=== PATIENT | female | born 1940 | race Caucasian/White ===

== ENCOUNTER 2017-04-09 16:36 | Inpatient (IN) | payer OTHER, MEDICARE ==
[~2017-04-09] VITALS: Ht 154.9 cm; Wt 124.7 kg
[~2017-04-09 16:36] MED LIST: AMITRIPTYLINE H50 MG PO; AMOXIL500 MG PO; ATIVAN0.5 MG PO; ATIVAN1 MG PO; B-121000 MCG PO; CIPRO 500MG TA500 MG PO; CLARITIN10 MG PO; CRESTOR20 MG PO; CYMBALTA 30 MG30 MG PO; DONEPEZIL HYDRO10 M1 PO; DONEPEZIL HYDRO10 MG PO; DULOXETINE30 MG PO; FLAGYL 25O MG250 M1 PO; FOLIC ACID 1 MG PO; FOLIC ACID1 MG PO; IMDUR 60MG TAB60 MG PO; INSULIN HUMA100 U/ML SC; LEVEMIR 10100 UNITS/ SC; LEVEMIR FLEX100 U/ML PO; LEVEMIR FLEX100 U/ML SC; LEVEMIR100 U/ML IM; LOPRESSOR 25MG25 MG PO; LOPRESSOR50 MG PO; LYRICA75 MG PO; MELOXICAM15 MG PO; NOVOLOG 10300 UNITS/ SC; NOVOLOG FLEX100 U/ML SC; NYAMYC100000 U/G TOP; NYSTATIN AND TR1 CR1 TOP; PERCOCET 325 MG1 TA2 PO; PROTONIX 40MG T40 MG PO; PROTONIX INJ40 MG IV; REQUIP2 MG PO; ROPINIROLE HYDRO2 MG PO; TRAMADOL HCL50 M1 PO; TRAZODONE HCL100 MG PO; TRAZODONE100 MG PO; TYLENOL325 MG PO; VESICARE 10MG10 MG PO; VICTOZA6 MG/ML SC; VISTARIL25 MG PO; VITAMIN B COMPL1 TA1 PO; VITAMIN B-6100 MG PO; VITAMIN B625 MG PO; VITAMIN D1000 IU PO; ZOFRAN 2MG/4 MG/2 ML IV
--- NOTE | 2017-04-09 16:56 | ED GI/GU/ABDOMINAL COMPLAINT ---
History of Present Illness General Chief Complaint: Female Urogenital Problems Stated Complaint: BIBA UTI,LETHARGIC Source: patient, family, old records, EMS Exam Limitations: confusion Vital Signs & Intake/Output Vital Signs & Intake/Output Vital Signs Date Time Temp Pulse Resp B/P B/P Pulse O2 O2 Flow FiO2 Mean Ox Delivery Rate 04/09 2125 96.9 04/09 2124 96.9 85 16 94 Nasal 4.0L Cannula 04/09 1910 97.6 86 16 125/64 94 Room Air 04/09 1802 93 Nasal 4.0L Cannula 04/09 1703 97.0 90 12 148/70 95 Nasal 4.0L Cannula Allergies Coded Allergies: Opioids - Morphine Analogues (UNKNOWN REACTION TO "PAIN PILLS" 04/09/17) Reconcile Medications AMITRIPTYLINE HCL (Amitriptyline HCl) 50 MG TABLET 1 TAB PO AT BEDTIME PSYCH (Reported) Amoxicillin (Amoxil) 500 MG CAP 1 CAP PO BID infn Cholecalciferol (Vitamin D3) 1,000 UNIT TABLET 1 TAB PO DAILY VITAMIN ( Reported) Donepezil Hydrochloride 10 MG TAB 1 TAB PO DAILY DEMENTIA (Reported) DULOXETINE HCL (Duloxetine) 30 MG CAPSULE.DR 1 TAB PO DAILY UNKNOWN (Reported ) Folic Acid 1 MG TABLET 1 TAB PO DAILY VITAMIN (Reported) Hydroxyzine Pamoate (Vistaril) 25 MG CAP 1 CAP PO BID itching Insulin Detemir (Levemir) 100 UNIT/ML VIAL DIABETES (Reported) 30 UNITS IN AM 45 UNITS AT PM Insulin Human Regular 100 U/ML MO Unknown UNITS SC TIDAC PRN GLUCOSE CONTROL BLOOD SUGAR # OF UNITS 80-150 NONE 151-200 1 UNITS 201-250 2 UNITS 251-300 3 UNITS 301-350 4 UNITS 351-400 6 UNITS >400 8 UNITS and Call Loratadine (Claritin) 10 MG TAB 1 TAB PO DAILY SEASONAL ALLERGIES (Reported) Lorazepam (Ativan) 0.5 MG TAB 1 TAB PO Q8H PRN ANXIETY (Reported) Metoprolol Tartrate (Lopressor) 25 MG TABLET 1 TAB PO BID HEART RATE ( Reported) Nystatin (Nyamyc) 100,000 UNIT/GRAM POWDER 1 POW TOP PRN RASH (Reported) Ondansetron (Ondansetron HCl 4 MG/2 Ml Vial) 4 MG/2 ML VIAL 4 MG IV Q6P PRN NAUSEA/VOMITING Pantoprazole Sodium (Protonix) 40 MG TABLET.DR 1 TAB PO BID GERD (Reported) Pregabalin (Lyrica) 75 MG CAPSULE 1 TAB PO BID UNKNOWN (Reported) Pyridoxine (Vitamin B6) 25 MG TAB 1 TAB PO DAILY VITAMIN (Reported) ROPINIROLE HCL (Ropinirole Hydrochloride) 2 MG TABLET 1 TAB PO AT BEDTIME RESTLESS LEGS (Reported) Rosuvastatin Calcium (Crestor) 20 MG TABLET 1 TAB PO DAILY CHOLESTEROL ( Reported) Solifenacin Succinate (Vesicare) 10 MG TABLET 1 TAB PO DAILY UNKNOWN ( Reported) TRAMADOL HCL (Tramadol HCl) 50 MG TABLET 1 TAB PO Q4H PRN PAIN (Reported) TRAZODONE HCL (Trazodone HCl) 100 MG TABLET 1 TAB PO AT BEDTIME PAIN ( Reported) VIT B COMP/C/FA/IRON/VIT E (Vitamin B Complex Tablet) 500-400-18 TABLET 1 TAB PO DAILY VITAMIN (Reported) Triage Nurses Notes Reviewed? yes ? n Is pt currently ? No Onset: Abrupt Duration: hour(s): Timing: recent history Quality/Severity: moderate, sharpness, severe (v ) Radiation: no radiation Activities at Onset: none Use of Protection: No HPI: 77-year-old female comes into emergency room for further evaluation of increased confusion and weakness has been going on for the past few weeks. Patient lives at home with HER-2 daughters. Daughters report decline in her ability to function. He has not been taking so. No fevers. Patient denies any complaints of pain is mildly confused. History is very limited. Patient was brought in by ambulance. (YUNI ARMSTRONG) Past History Medical History Any Pertinent Medical History? 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 Relation not specified for: FH: leukemia FH: pulmonary embolism Hx Contributory? No (YUNI ARMSTRONG) Review of Systems Review of Systems Constitutional: Reports: see HPI. EENTM: Reports: no symptoms. Respiratory: Reports: no symptoms. Cardiovascular: Reports: no symptoms. GI: Reports: no symptoms. Genitourinary: Reports: no symptoms. Musculoskeletal: Reports: no symptoms. Skin: Reports: no symptoms. Neurological/Psychological: Reports: see HPI. Hematologic/Endocrine: Reports: no symptoms. Immunologic/Allergic: Reports: no symptoms. All Other Systems: Reviewed and Negative (YUNI ARMSTRONG) Physical Exam Physical Exam General Appearance: alert, awake, obese Head: atraumatic Eyes: Bilateral: normal appearance, EOMI. Ears, Nose, Throat, Mouth: hearing grossly normal, moist mucous membrane Neck: normal inspection, full range of motion Respiratory: normal breath sounds, no respiratory distress Cardiovascular: regular rate/rhythm Gastrointestinal: soft Back: normal inspection Extremities: normal range of motion Neurologic/Psych: awake, alert Skin: intact, rash Core Measures ACS in differential dx? No Severe Sepsis Present: No Septic Shock Present: No (YUNI ARMSTRONG) Progress Differential Diagnosis: appendicitis, bowel obstruction, colon cancer, cholecystitis, diverticulitis, ectopic , inflamm bowel dis, intrauterine , kidney stone, ovarian cyst, ovarian torsion, pancreatitis, perforated viscous, threatened AB, UTI/pyelo, CVA, intracranial bleed, sepsis, Plan of Care: Orders Procedure Date/time Status Regular Diet 04/10 B Active Patient Data 04/09 2146 Active OXYGEN SETUP (GEN) 04/09 1913 Active Saline Lock 04/09 1913 Active Admit to inpatient 04/09 1913 Active Vital Signs 04/09 1913 Active Activity/Ambulation 04/09 1913 Active Code Status 04/09 1913 Active CULTURE,URINE 04/09 1655 Active URINALYSIS 04/09 1655 Complete TROPONIN LEVEL 04/09 1655 Complete LIPASE 04/09 1655 Complete COMPREHENSIVE METABOLIC PANEL 04/09 1655 Complete CBC WITHOUT DIFFERENTIAL 04/09 1655 Complete EKG 04/09 1655 Active Laboratory Tests 04/09/17 1730: Anion Gap 13, Estimated GFR 40 L, BUN/Creatinine Ratio 14.6, Glucose 91, Calcium 9.1, Total Bilirubin 1.0, AST 28, ALT 32, Alkaline Phosphatase 124, Troponin I < 0.01, Total Protein 7.2, Albumin 3.6, Globulin 3.6, Albumin/ Globulin Ratio 1.0 L, Lipase 83, CBC w Diff NO MAN DIFF REQ, RBC 5.86 H, MCV 87.8, MCH 28.6, RDW 13.8, MPV 9.2, Gran % 85.3 H, Lymphocytes % 7.6 L, Monocytes % 6.7, Eosinophils % 0.2, Basophils % 0.2, Absolute Granulocytes 11.4 H, Absolute Lymphocytes 1.0 L, Absolute Monocytes 0.9 H, Absolute Eosinophils 0, Absolute Basophils 0, PUBS MCHC 32.6 L 04/09/171707: Urine Color YEL, Urine Clarity CLDY H, Urine pH 7.0, Ur Specific [place] 1.020, Urine Protein 100 H, Urine Ketones NEG, Urine Nitrite POS H, Urine Bilirubin NEG, Urine Urobilinogen 4.0 H, Ur Leukocyte Esterase LARGE H, Ur Microscopic SEDIMENT EXAMINED, Urine RBC >75 H, Urine WBC > 75 H, Ur Epithelial Cells RARE , Urine Bacteria MANY H, Urine Mucus RARE, Urine Hemoglobin LARGE H, Urine Glucose NEG Microbiology 04/09 1708 URINE ROUT: Urine Culture - RECD Initial ED EKG: normal intervals, normal p-waves, normal sinus rhythm, rate (92) , nonspecific ST T wave chg (YUNI ARMSTRONG) Departure Departure Disposition: STILL A PATIENT Condition: Stable Clinical Impression Primary Impression: Acute kidney injury Secondary Impressions: UTI (urinary tract infection) Referrals: HERRERA CULLEN MD (PCP/Family) Departure Forms: Customer Survey General Discharge Information Admission Note Spoke With: MEL TOLEDO MD Documentation of Exam: Documentation of any treatments & extenuating circumstances including Concerns Regarding Discharge (functional status, medication knowledge or non-compliance, living conditions, etc.) that warrant an admission rather than observation: Patient will require IV antibiotics. IV fluids. Case management. Physical therapy. Patient would do poorly as an outpatient. Patient unsafe to be discharged home at this time. 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 I have also reviewed all the pertinent lab results and diagnostic results. I agree with the findings and the plan of care as documented in the PA's/METAL HANGING SUPERVISOR's documentation. [] I have reviewed the ED Record and agree with the PA's/METAL HANGING SUPERVISOR's documentation. [] Additions or exceptions (if any) to the PAs/METAL HANGING SUPERVISOR's note and plan are summarized below: [] (JAMEEL CROWE,NONI)
--- NOTE | 2017-04-09 17:08 | NUR ---
BIBA FOR AMS, DIAGNOSED RECENTLY WITH UTI AND STARTED ON ANTIBIOTICS YESTERDAY. PT IS MORBIDLY OBESE, BEDRIDDEN AT BASELINE AND PER EMS, LIVES IN INHOSPITABLE LIVING CONDITIONS. ARRIVES LETHARGIC, EXTREMELY MALODOROUS, AND HAS MANY OPEN SORES ALL OVER GROIN, VAGINAL AREA, AND UNDER BREASTS. CLEANED ON ARRIVAL AND BARRIER CREAM APPLIED TO ALL SITES. INDWELLING 18FR HATFIELD INSERTED AND PURULENT RED/BROWN URINE OUTPUT NOTED ON INSERTION. BP STABLE, ABLE TO ANSWER QUESTIONS. DENIES PAIN OR SOB
--- NOTE | 2017-04-09 17:32 | NUR ---
IV ESTABLISHED AND BLOODS DRAWN AND SENT (BLUE, SSTX2, LAV, MEZA). FAMILY INFORMED OF INTERVENTIONS AND PLAN
[2017-04-09 17:44] LABS: ABSOLUTE BASOPHIL COUNT 0 /CUMM (0.0-0.2); ABSOLUTE EOSINOPHIL COUNT 0 /CUMM (0.0-0.7); ABSOLUTE GRANULOCYTE CT 11.4 /CUMM (1.4-6.5); ABSOLUTE MONOCYTE COUNT 0.9 /CUMM (0.10-0.60); BASOPHIL % 0.2 % (0.0-2.0); EOSINOPHIL % 0.2 % (0-5); HEMATOCRIT 51.4 % (37-47); MEAN CORPUSCULAR HGB 28.6 PG (27.0-31.0); MEAN CORPUSCULAR HGB CONC 32.6 G/DL (33.0-37.0); MEAN CORPUSCULAR VOLUME 87.8 FL (81.0-99.0); MEAN PLATELET VOLUME 9.2 FL (7.4-10.4); PLATELET COUNT 226 /CUMM (130-400); RBC DISTRIBUTION WIDTH 13.8 % (11.5-14.5); RED BLOOD CELL CT 5.86 /CUMM (4.20-5.40); WHITE BLOOD CELL COUNT 13.4 /CUMM (4.8-10.8)
[2017-04-09 18:01] LABS: GRANULOCYTE % 85.3 % (42.2-75.2)
--- NOTE | 2017-04-09 19:08 | NUR ---
PT AND DAUGHTER UPDATED ON RECOMMENDATIONS FOR ADMISSION, DESPITE PT'S REQUEST TO GO HOME. IN AGREEMENT WITH CURRENT PLAN. NS IVF BOLUS RUNNING AND MEDICATED PER ORDER. ARM BOARD APPLIED WITH COBAN AND FLUFTEX AND REPOSITIONED FOR COMFORT. REMAINS ALERT AND NORMOTENSIVE. REPOSITIONED ONTO L SIDE. RED IRRITATION NOTED TO BUTTOCKS BUT SKIN INTACT
--- NOTE | 2017-04-09 21:25 | NUR ---
MEDICATED WITH TYLENOL PER EMAR FOR HEADACHE
--- NOTE | 2017-04-09 22:08 | NUR ---
PT TO ROOM 230 BED 2
--- NOTE | 2017-04-09 22:20 | History & Physical ---
DARRIAN CROWE,[facility] [place]/09/17 2219: General Information and HPI Allergies/Medications Allergies: Coded Allergies: Opioids - Morphine Analogues (UNKNOWN REACTION TO "PAIN PILLS" 04/09/17) Home Med list AMITRIPTYLINE HCL (Amitriptyline HCl) 50 MG TABLET 1 TAB PO AT BEDTIME PSYCH (Reported) Amoxicillin (Amoxil) 500 MG CAP 1 CAP PO BID infn Cholecalciferol (Vitamin D3) 1,000 UNIT TABLET 1 TAB PO DAILY VITAMIN ( Reported) Donepezil Hydrochloride 10 MG TAB 1 TAB PO DAILY DEMENTIA (Reported) DULOXETINE HCL (Duloxetine) 30 MG CAPSULE.DR 1 TAB PO DAILY UNKNOWN (Reported ) Folic Acid 1 MG TABLET 1 TAB PO DAILY VITAMIN (Reported) Hydroxyzine Pamoate (Vistaril) 25 MG CAP 1 CAP PO BID itching Insulin Detemir (Levemir) 100 UNIT/ML VIAL DIABETES (Reported) 30 UNITS IN AM 45 UNITS AT PM Insulin Human Regular 100 U/ML MO Unknown UNITS SC TIDAC PRN GLUCOSE CONTROL BLOOD SUGAR # OF UNITS 80-150 NONE 151-200 1 UNITS 201-250 2 UNITS 251-300 3 UNITS 301-350 4 UNITS 351-400 6 UNITS >400 8 UNITS and Call Loratadine (Claritin) 10 MG TAB 1 TAB PO DAILY SEASONAL ALLERGIES (Reported) Lorazepam (Ativan) 0.5 MG TAB 1 TAB PO Q8H PRN ANXIETY (Reported) Metoprolol Tartrate (Lopressor) 25 MG TABLET 1 TAB PO BID HEART RATE ( Reported) Nystatin (Nyamyc) 100,000 UNIT/GRAM POWDER 1 POW TOP PRN RASH (Reported) Ondansetron (Ondansetron HCl 4 MG/2 Ml Vial) 4 MG/2 ML VIAL 4 MG IV Q6P PRN NAUSEA/VOMITING Pantoprazole Sodium (Protonix) 40 MG TABLET.DR 1 TAB PO BID GERD (Reported) Pregabalin (Lyrica) 75 MG CAPSULE 1 TAB PO BID UNKNOWN (Reported) Pyridoxine (Vitamin B6) 25 MG TAB 1 TAB PO DAILY VITAMIN (Reported) ROPINIROLE HCL (Ropinirole Hydrochloride) 2 MG TABLET 1 TAB PO AT BEDTIME RESTLESS LEGS (Reported) Rosuvastatin Calcium (Crestor) 20 MG TABLET 1 TAB PO DAILY CHOLESTEROL ( Reported) Solifenacin Succinate (Vesicare) 10 MG TABLET 1 TAB PO DAILY UNKNOWN ( Reported) TRAMADOL HCL (Tramadol HCl) 50 MG TABLET 1 TAB PO Q4H PRN PAIN (Reported) TRAZODONE HCL (Trazodone HCl) 100 MG TABLET 1 TAB PO AT BEDTIME PAIN ( Reported) VIT B COMP/C/FA/IRON/VIT E (Vitamin B Complex Tablet) 500-400-18 TABLET 1 TAB PO DAILY VITAMIN (Reported) Past History Travel History Traveled to [place] past 21 day No Medical History Neurological: NONE EENT: NONE Cardiovascular: hypertension, hyperlipidemia Respiratory: NONE Gastrointestinal: GERD Hepatic: NONE Renal: NONE Musculoskeletal: osteoarthritis Psychiatric: depression Endocrine: diabetes Blood Disorders: NONE Cancer(s): NONE 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 Relation not specified for: FH: leukemia FH: pulmonary embolism Psychosocial History Services at Home: None Sexual History Use of Protection No Core Measures/Miscellaneous Severe Sepsis Severe Sepsis Present: No Septic Shock Septic Shock Present: No
--- NOTE | 2017-04-09 22:24 | NUR ---
REPORT GIVEN TO RECEIVING RN
[2017-04-09 23:57] VITALS: BP 118/64
--- NOTE | 2017-04-10 00:20 | NUR ---
LATE ENTRY NURSING NOTE: PT ARRIVED TO 2NA VIA STRETCHER @ 9505 ON 04/09. DAUGHTER AT BEDSIDE. PT DROWSY/AROUSABLE, CALM/COOPERATIVE. 4L NC IN PLACE. HATFIELD DRAINING AT BEDSIDE - CLOUD/PINK URINE. URINE CULTURE SENT. IVF RUNNING FROM ER. ADMISSION ASSESSMENT COMPLETED. WOUND CARE EVAL PLACED FOR REDNESS TO R BUTTOCKS. FALL PRECAUTIONS PUT IN PLACE. SIZEWISE ORDERED PT IS BED BOUND AT BASELINE. PT ORIENTED TO STAFF, ROOM, AND CALL CHAVEZ. RN WILL CONTINUE TO MONITOR.
--- NOTE | 2017-04-10 01:01 | History & Physical ---
BETINA REYES 04/10/17 0100: General Information and HPI MD Statement: I have seen and personally examined FERNANDO RUSSO and documented this H&P. The patient is a 77 year old F who presented with a patient stated chief complaint of [acting bizzare and UTI]. History of Present Illness: 77-year-old female, was admitted for " not acting herself" and poor oral intake. 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 Pneumonia UTI and GIORGI and the latest one in 2013 for lower GI bleeding from active diverticular bleeding. According to patient about 10-14 days ago she started having mild dysuria and increased frequency of urination but patient denies any nocturia and change in urine color and odor. Self treatment with Monistat provided minimal relief of her symptoms, hence patient contacted her primary care physician Cole Arreaga MD who orders urine analysis, which showed urinary tract infection and Cole Arreaga MD placed an order for DS Bactrim X7 days for the patient which was a started yesterday at 1 PM (patient had received 1 dose of oral antibiotics). According to patient's daughter patient became more confused than her baseline. Patient spent most of today and yesterday at bed and barely ate or drink. Family were concerned about her situation ambulance was called and patient was transferred to [facility] emergency room. In the emergency room patient was complaining of mild dysuria and mild hypogastric abdominal pain. Vital signs were stable (97/90/12/148/70/95% in room air). Physical exam revealed morbidly obese woman not in acute distress. Slight hypogastric abdominal tenderness no guarding no rebound. The remainder of the physical exam was unremarkable. Patient is complete blood count lives with her daughters and completely dependent on them for all his personal care. She uses commode; Social HX: The patient has been 4 times with multiple divorces. Eight children. The patient lives with 2 of her daughters and 1 son. No cigarettes, no street drugs , no alcohol. The patient is bedridden. FAMILY HISTORY: (Obtained from old records): Mother- 68, PE. Father- 50, alcohol abuse. One sister- DC. Another sister with leukemia. One brother , unknown causes. Questionable family history of gastric CA, although family history is very difficult to obtain. Allergies/Medications Allergies: Coded Allergies: Opioids - Morphine Analogues (UNKNOWN REACTION TO "PAIN PILLS" 04/09/17) Home Med list AMITRIPTYLINE HCL (Amitriptyline HCl) 50 MG TABLET 1 TAB PO AT BEDTIME PSYCH (Reported) Cholecalciferol (Vitamin D3) 1,000 UNIT TABLET 1 TAB PO DAILY VITAMIN ( Reported) Donepezil Hydrochloride 10 MG TAB 1 TAB PO DAILY DEMENTIA (Reported) DULOXETINE HCL (Duloxetine) 30 MG CAPSULE.DR 1 TAB PO DAILY UNKNOWN (Reported ) Folic Acid 1 MG TABLET 1 TAB PO DAILY VITAMIN (Reported) Hydroxyzine Pamoate (Vistaril) 25 MG CAP 1 CAP PO BID itching Insulin Detemir (Levemir) 100 UNIT/ML VIAL DIABETES (Reported) 30 UNITS IN AM 45 UNITS AT PM Insulin Human Regular 100 U/ML MO Unknown UNITS SC TIDAC PRN GLUCOSE CONTROL BLOOD SUGAR # OF UNITS 80-150 NONE 151-200 1 UNITS 201-250 2 UNITS 251-300 3 UNITS 301-350 4 UNITS 351-400 6 UNITS >400 8 UNITS and Call Loratadine (Claritin) 10 MG TAB 1 TAB PO DAILY SEASONAL ALLERGIES (Reported) Lorazepam (Ativan) 0.5 MG TAB 1 TAB PO Q8H PRN ANXIETY (Reported) Metoprolol Tartrate (Lopressor) 25 MG TABLET 1 TAB PO BID HEART RATE ( Reported) Nystatin (Nyamyc) 100,000 UNIT/GRAM POWDER 1 POW TOP PRN RASH (Reported) Ondansetron (Ondansetron HCl 4 MG/2 Ml Vial) 4 MG/2 ML VIAL 4 MG IV Q6P PRN NAUSEA/VOMITING Pregabalin (Lyrica) 75 MG CAPSULE 1 TAB PO BID UNKNOWN (Reported) Pyridoxine (Vitamin B6) 25 MG TAB 1 TAB PO DAILY VITAMIN (Reported) ROPINIROLE HCL (Ropinirole Hydrochloride) 2 MG TABLET 1 TAB PO AT BEDTIME RESTLESS LEGS (Reported) Rosuvastatin Calcium (Crestor) 20 MG TABLET 1 TAB PO DAILY CHOLESTEROL ( Reported) Solifenacin Succinate (Vesicare) 10 MG TABLET 1 TAB PO DAILY UNKNOWN ( Reported) TRAMADOL HCL (Tramadol HCl) 50 MG TABLET 1 TAB PO Q4H PRN PAIN (Reported) TRAZODONE HCL (Trazodone HCl) 100 MG TABLET 1 TAB PO AT BEDTIME PAIN ( Reported) VIT B COMP/C/FA/IRON/VIT E (Vitamin B Complex Tablet) 500-400-18 TABLET 1 TAB PO DAILY VITAMIN (Reported) Compliance With Home Meds: GOOD Past History Travel History Traveled to [place] past 21 day No Medical History Blood Transfusion Hx: Yes Neurological: NONE EENT: NONE Cardiovascular: hypertension, hyperlipidemia Respiratory: NONE Gastrointestinal: GERD Hepatic: NONE Renal: NONE Musculoskeletal: osteoarthritis Psychiatric: depression Endocrine: diabetes Blood Disorders: NONE Cancer(s): NONE AIRCRAFT ENGINEER/Reproductive: NONE History of MRSA: No History of VRE: No History of CDIFF: No Isolation History: Standard Surgical History Surgical History: non-contributory Past Family/Social History Family History Relations & Conditions if any FATHER (ETOH in father.son- stomach cancersiblings- CAD). Relation not specified for: FH: leukemia FH: pulmonary embolism Psychosocial History Where do you live? Home Services at Home: None Smoking Status: Never Smoked Living Will? yes Functional Ability ADLs Needs Assist: dressing, eating, toileting, bathing. Ambulation: bed bound IADLs Needs Assist: shopping, housework, finances, food prep, telephone, transportation, medication admin. Sexual History Use of Protection No Review of Systems Review of Systems Constitutional: Reports: see HPI. EENTM: Reports: see HPI. Cardiovascular: Reports: see HPI. Respiratory: Reports: see HPI. GI: Reports: see HPI. Genitourinary: Reports: see HPI, dysuria, frequency. Denies: hematuria, hesitation, nocturia, pain, urgency. Musculoskeletal: Reports: see HPI. Skin: Reports: see HPI. Neurological/Psychological: Reports: see HPI. Hematologic/Endocrine: Reports: see HPI. All Other Systems: Reviewed and Negative Exam & Diagnostic Data Last 24 Hrs of Vital Signs/I&O Vital Signs Date Time Temp Pulse Resp B/P B/P Pulse O2 O2 Flow FiO2 Mean Ox Delivery Rate 04/10 0003 95 Nasal 4.0L Cannula 04/09 2357 97.1 73 18 118/64 95 Room Air 04/09 2125 96.9 04/09 2124 96.9 85 16 94 Nasal 4.0L Cannula 05/11 1910 97.6 86 16 125/64 94 Room Air 04/09 1802 93 Nasal 4.0L Cannula 04/09 1703 97.0 90 12 148/70 95 Nasal 4.0L Cannula Intake & Output 04/10 0800 04/10 0000 04/09 1600 Intake Total Output Total 250 Balance -250 Output, Urine 250 Patient 275 lb Weight Weight Reported by Patient Measurement Method Physical Exam General Appearance Alert, Oriented X3, Cooperative, No Acute Distress Skin No Breakdown, No Significant Lesion, rash;trunk; under breast HEENT Atraumatic, Mucous Membr. moist/pink Neck Supple, No JVD, No thryomegaly Lymphatic Axillary nl, Cervical nl Cardiovascular Normal S1, Normal S2, No Murmurs Lungs Clear to Auscultation, Normal Air Movement Abdomen Soft, No Tenderness Neurological Normal Speech, Strength at 5/5 X4 Ext, Sensation Intact Extremities No Clubbing, No Cyanosis, No Edema Vascular Normal Pulses, Pulses Symmetrical Body Front and Back (Adult) 1) rash 2) rash Last 24 Hrs of Labs/Price: Laboratory Tests 04/09/170: Anion Gap 13, Estimated GFR 40 L, BUN/Creatinine Ratio 14.6, Glucose 91, Calcium 9.1, Total Bilirubin 1.0, AST 28, ALT 32, Alkaline Phosphatase 124, Troponin I < 0.01, Total Protein 7.2, Albumin 3.6, Globulin 3.6, Albumin/ Globulin Ratio 1.0 L, Lipase 83, CBC w Diff NO MAN DIFF REQ, RBC 5.86 H, MCV 87.8, MCH 28.6, RDW 13.8, MPV 9.2, Gran % 85.3 H, Lymphocytes % 7.6 L, Monocytes % 6.7, Eosinophils % 0.2, Basophils % 0.2, Absolute Granulocytes 11.4 H, Absolute Lymphocytes 1.0 L, Absolute Monocytes 0.9 H, Absolute Eosinophils 0, Absolute Basophils 0, PUBS MCHC 32.6 L 04/09/17 1708: Urine Color YEL, Urine Clarity CLDY H, Urine pH 7.0, Ur Specific [place] 1.020, Urine Protein 100 H, Urine Ketones NEG, Urine Nitrite POS H, Urine Bilirubin NEG, Urine Urobilinogen 4.0 H, Ur Leukocyte Esterase LARGE H, Ur Microscopic SEDIMENT EXAMINED, Urine RBC >75 H, Urine WBC > 75 H, Ur Epithelial Cells RARE , Urine Bacteria MANY H, Urine Mucus RARE, Urine Hemoglobin LARGE H, Urine Glucose NEG Microbiology 04/09 2330 URINE ROUT: Urine Culture - RECD 04/09 1708 URINE ROUT: Urine Culture - RECD Assessment/Plan Assessment: 77-year-old woman was admitted for acute kidney injury and urinary tract infection. Pertinent data WBC 13.4 with left shift and bandemia, BUN 19, creatinine 1.3, UA positive nitrates WBC more than 75 List of active problems #1 acute kidney injury most possibly due to urinary tract infection and poor oral intake. Patient has a history of sepsis/septic shock with Klebsiella pneumonia pansensitive except for ampicillin. Acute kidney injury most possibly related to urinary tract infection. There is no evidence of renal/post renal/ perirenal causes of AK I. * Admit to general medical floor * Continue IV ceftriaxone 2000 mg daily * Follow microbiology resultsurine culture * Continue IV hydration with normal saline * Repeat CBCs and BEP in a.m. * If creatinine did not improve by IV hydration obtain renal ultrasound to rule out obstructive uropathy and place a nephrology consult. #2 vitamin D deficiency * Vitamin D 1000 units by mouth daily #3 Alzheimer dementia * Donepezil 10 mg by mouth daily #4 depression and anxiety * Ativan 0.5 mg every 8 hours when necessary * Duloxetine 30 mg * Duloxetine 60 mg * Lyrica 75 mg by mouth twice a day * Trazodone 100 mg by mouth at bedtime for depression and insomnia #5 diabetes * Diabetes diets * Insulin TRESIBA 120u AM, 100 * Insulin regular sliding scale 3 times a day before meals * Fingersticks TIDAC #6 coronary artery disease and hyperlipidemia * Metoprolol tartrate 25 mg by mouth twice a day * Rosuvastatin 20 mg by mouth daily #7 restless leg syndrome * Ropinirole 2 mg by mouth at bedtime DNR/DNI Pain management DVT prophylaxisheparin 5000 units every 8 hours subcutaneous As Ranked By This Provider Problem List: 1. UTI (urinary tract infection) 2. Acute kidney injury 3. Overactive bladder 4. Dementia 5. Depression 6. Hyperlipidemia 7. History of CVA (cerebrovascular accident) 8. GI bleed Core Measures/Miscellaneous Acute Coronary Syndrome ACS Diagnosis: No Cerebrovascular Accident CVA/TIA Diagnosis: No Congestive Heart Failure CHF Diagnosis: No Venous Thromboembolism VTE Risk Factors: Acute medical illness, Age > 40, Immobility, paresis, Obesity [facility] prophylaxis d/t: No contraindications No VTE Pharm Prophylaxis d/t: No contraindications VTE Diagnosis: No VTE Type: NONE VTE Confirmed by (Test): NONE Severe Sepsis Severe Sepsis Present: No Septic Shock Septic Shock Present: No Miscellaneous Documentation Attending Case Discussed With: MEL TOLEDO MD Primary Care Physician: HERRERA ARREAGA MD Patient sees these Specialists Hospitalist Level of Patient Care: General Medicine Resident Review Statement Resident Statement: examined this patient, discussed with internet webmaster, agreed with internet webmaster, discussed with family, reviewed EMR data (avail), discussed with nursing , discussed with case mgmt, reviewed images, amended to note DAVY TOLEDO MD 04/10/17 0713: Attending MD Review Statement Attending Statement Attending MD Statement: examined this patient, discuss w/resident/PA/GARAGE WORKER, agreed w/resident/PA/GARAGE WORKER, discussed with family Attending Assessment/Plan: 77 yo morbidly obese F, T2DM, stroke with right sided deficit, HTN, bacterial endocarditis, recurrent UTI, brought in for confusion, weakness and poor PO intake. Patient lives with her 2 daughters, who report a slow decline. She is mostly bedbound but is able to use bedside commode with assistance. She was diagnosed with UTI by PCP, placed on Bactrim 2 days ago. UC growing Klebsiella. Vitals stable except for sats 94% on 4L. She is lethargic, malodorous, fungal rash over b/l groin and under breasts. Labs: WBC 13.4, H/H 16.8/51.4, Bun 19, creat 1.3 (baseline 0.8), trop neg. UA positive. EKG: SR, no acute changes. 1. Klebsiella UTI/ acute cystitis with GIORGI. GM admit, panculture, IV fluids, IV ceftriaxone. ER placed a metcalf on her as she has an extensive rash to her groin/ vaginal area. Monitor I/O's. Nystatin cream/powder for LA. Patient is incontinent at baseline, would DC metcalf garrison. 2. Deconditioning. PT eval and possible STR. 3. Increased O2 requirements. She possibly has obesity hypoventilation syndrome and ARTIE, requiring 4 L O2 overnight but no documented hypoxia, will get CXR and provide IST. 4. T2DM. Please get Endocrine consult to help with med management. DVT ppx Hep SC. DNR/I.
--- NOTE | 2017-04-10 01:15 | NUR ---
NURSING NOTE: THIS RN REQUESTED NYSTATIN POWDER FOR GROIN AND UNDER BREAST TO MD BETINA REYES.
--- NOTE | 2017-04-10 05:33 | Admission Certification ---
Admission Certification Certification Statement - As attending physician, I certify that at the time of - admission, based on clinical presentation, severity of - symptoms, need for further diagnostic testing and - therapeutic interventions, and risk of adverse outcomes - without in-hospital treatment, in my clinical assessment, - this patient requires an acute hospital stay for a minimum - of two nights or longer. I have also considered psychsocial - factors such as support system, advanced age, financial - issues, cognitive issues, and failed out-patient treatments, - past re-admission history, safety of patient, and lack of - compliance as applicable. Specific rationale supporting this admission is: Klebsiella UTI, GIORGI.
--- NOTE | 2017-04-10 06:13 | NUR ---
NURSING NOTE: PT O2SAT 86% ON 4L NC. OXYGEN INCREASED TO 6L NC - PT O2SAT 92%. MD COLMENARES AWARE. DEIDRE FROM RESPIRATORY AWARE. RN WILL CONTINUE TO MONITOR.
[2017-04-10 06:30] VITALS: BP 120/62
--- NOTE | 2017-04-10 07:18 | PN- Housestaff ---
RUSLAN CROWE,NADYA 04/10/17 0718: Subjective Follow-up For: Klebsiella UTI/Cystitis GIORGI Subjective: Patient is lying comfortably in bed. She states that her breathing is at baseline and this is how she breathes at home as well. She always has a fan on next to her, because she feels like she does not get enough air. She has never been investigated for this in the past. Review of Systems Constitutional: Reports: see HPI. Objective Last 24 Hrs of Vital Signs/I&O Vital Signs Date Time Temp Pulse Resp B/P B/P Pulse O2 O2 Flow FiO2 Mean Ox Delivery Rate 04/10 0630 97.9 104 18 120/62 92 Nasal Cannula 04/10 0624 95 Nasal 6.0L Cannula 04/10 0003 95 Nasal 4.0L Cannula 04/09 2357 97.1 73 18 118/64 95 Room Air 04/09 212 96.9 04/09 2124 96.9 85 16 94 Nasal 4.0L Cannula 04/09 1910 97.6 86 16 125/64 94 Room Air 04/09 1802 93 Nasal 4.0L Cannula 04/09 1703 97.0 90 12 148/70 95 Nasal 4.0L Cannula Intake & Output 04/10 0800 04/10 0000 04/09 1600 Intake Total 1050 Output Total 250 Balance 1050 -250 Intake, IV 1000 Intake, Oral 50 Output, Urine 250 Patient 275 lb Weight Weight Reported by Patient Measurement Method Physical Exam General Appearance: Alert, Oriented X3, Cooperative, morbidly obese woman, lying down in bed. Cardiovascular: Heart sounds are diminished. Lungs: Lung sounds are diminished. Abdomen: Normal Bowel Sounds, Soft, No Tenderness Neurological: Normal Speech, Strength at 5/5 X4 Ext, Normal Tone, Sensation Intact Extremities: No Edema Current Medications: Current Medications Sig/Tony Start time Last Medication Dose Route Stop Time Status Admin Acetaminophen 650 MG Q6P PRN 04/09 2245 AC PO Acetaminophen 975 MG ONCE ONE 04/09 2130 DC 04/09 PO 04/09 Acetaminophen 0 .STK-MED ONE 04/09 2124 DC PO Acetaminophen/ 1 TAB Q6P PRN 04/09 2245 AC Hydrocodone Bitart PO Amitriptyline HCl 50 MG AT BEDTIME 04/10 2200 AC PO Atorvastatin Calcium 40 MG 1700 04/10 1700 AC PO Ceftriaxone Sodium 1,000 MG DAILY 04/10 1000 AC IV Ceftriaxone Sodium 1,000 MG ONCE ONE 04/09 1945 DC 04/09 IV 04/09 1946 192 Ceftriaxone Sodium 0 .STK-MED ONE 04/09 1858 DC .ROUTE Cholecalciferol 1,000 IU DAILY 04/10 1000 AC PO Donepezil HCl 10 MG DAILY 04/10 1000 AC PO Duloxetine HCl 60 MG 1600 04/10 1600 AC PO Duloxetine HCl 30 MG DAILY 04/10 1000 AC PO Folic Acid 1 MG DAILY 04/10 1000 AC PO Heparin Sodium 5,000 UNIT Q8 04/10 0600 AC 04/10 (Porcine) SC 0547 Insulin Aspart 0 TIDAC 04/10 0800 AC SC Insulin Human Regular 0 TIDAC/HS 04/10 0800 CAN SC Loratadine 10 MG DAILY 04/10 1000 AC PO Lorazepam 0.5 MG Q3P PRN 04/10 0215 AC PO 04/17 0214 Metoprolol Tartrate 25 MG BID 04/10 1000 AC PO Morphine Sulfate 2 MG Q4 PRN 04/09 2245 AC IV Non-Formulary 0 SEE ADMIN CRITERIA 04/10 0245 UNVr Medication ANY Nystatin 1 ATTILA BID 04/10 0207 AC 04/10 TOP 0547 Oxybutynin Chloride 10 MG DAILY 04/10 1000 AC PO Pregabalin 75 MG BID 04/10 1000 AC PO Pyridoxine HCl 25 MG DAILY 04/10 1000 AC PO Ropinirole HCl 2 MG 2200 04/10 2200 AC PO Sodium Chloride 1,000 ML ONCE ONE 04/10 0230 CAN IV 04/10 1229 Sodium Chloride 1,000 ML ONCE ONE 04/09 2245 DC 04/09 IV 04/10 0644 2316 Sodium Chloride 1,000 ML BOLUS ONE 04/09 194 DC 04/09 IV 04/09 2044 1925 Tramadol HCl 50 MG Q4H PRN 04/10 0230 AC PO Trazodone HCl 100 MG AT BEDTIME 04/10 2200 AC PO Last 24 Hrs of Lab/Price Results Last 24 Hrs of Labs/Mics: Laboratory Tests 04/09/17 1730: Anion Gap 13, Estimated GFR 40 L, BUN/Creatinine Ratio 14.6, Glucose 91, Calcium 9.1, Total Bilirubin 1.0, AST 28, ALT 32, Alkaline Phosphatase 124, Troponin I < 0.01, Total Protein 7.2, Albumin 3.6, Globulin 3.6, Albumin/ Globulin Ratio 1.0 L, Lipase 83, CBC w Diff NO MAN DIFF REQ, RBC 5.86 H, MCV 87.8, MCH 28.6, RDW 13.8, MPV 9.2, Gran % 85.3 H, Lymphocytes % 7.6 L, Monocytes % 6.7, Eosinophils % 0.2, Basophils % 0.2, Absolute Granulocytes 11.4 H, Absolute Lymphocytes 1.0 L, Absolute Monocytes 0.9 H, Absolute Eosinophils 0, Absolute Basophils 0, PUBS MCHC 32.6 L 04/09/17 1708: Urine Color YEL, Urine Clarity CLDY H, Urine pH 7.0, Ur Specific [place] 1.020, Urine Protein 100 H, Urine Ketones NEG, Urine Nitrite POS H, Urine Bilirubin NEG, Urine Urobilinogen 4.0 H, Ur Leukocyte Esterase LARGE H, Ur Microscopic SEDIMENT EXAMINED, Urine RBC >75 H, Urine WBC > 75 H, Ur Epithelial Cells RARE , Urine Bacteria MANY H, Urine Mucus RARE, Urine Hemoglobin LARGE H, Urine Glucose NEG Microbiology 04/09 2330 URINE ROUT: Urine Culture - RECD 04/09 1708 URINE ROUT: Urine Culture - RECD Lines/Diet/Fluids Lines: peripheral lines Assessment/Plan Assessment: 77 y/o F with PMH of T2DM, stroke with right sided residual weakness, HTN, Bacterial Endocarditis, recurrent UTI, sent to the ED for increased confusion and poor PO intake. She was diagnosed with a UTI by her PCP 2 days ago, and was put on Bactrim. Current urine cultures are growing Klebsiella. In the ED, pertinent labs showed, WBC 13.4, H/H 16.8/51.4, Creatinine 1.3 (increased from baseline of 0.8). She is currently admitted to the General Medicine floor for further management. Problem List: * Klebsiella UTI * Worsening GIORGI 2/2 Dehydration vs Fluid overload from possible CHF * Fungal rash of groin * T2DM on Tresiba at home * Hyperlipidemia * Hypertension * Dementia Plan: * Continue monitoring on Gen Med * Continue Ceftriaxone for now, as current organism is sensitive to it. * Creatinine has increased since admission, with increase in BUN despite the patient recieving fluids. Fluid overload vs obstructive uropathy. Check Renal USG, Urine lytes. Hold fluids for now. Recheck Creatinine later today. * Lower extremity doppler and V/Q scan to r/o PE. * Continue Nystatin powder for fungal rash. * Endo consult for management of long acting insulin Tresiba, which is not available in the hospital. * Continue other home medications for now. * DVT PPx: Heparin SubQ * Pain Pathway: Tylenol, Vicodin, Morphine * Code Status: DNR/DNI Problem List: 1. UTI (urinary tract infection) 2. GIORGI (acute kidney injury) Pain Ratin Pain Location: None Pain Goal: Pain 4 or less Pain Plan: Per EMR Tomorrow's Labs & Rationales: CBC to monitor infection DVT/Prophylaxis: pharmacological DILIP STODDARD MD 04/10/17 1050: Attending MD Review Statement Attending Statement Attending MD Statement: examined this patient, discuss w/resident/PA/MONOGRAM MAKER, agreed w/resident/PA/MONOGRAM MAKER, reviewed EMR data (avail) Attending Assessment/Plan: Agree with resident assessment and plan. Will continue Ceftriaxone for Klebsiella UTI, monitor renal function, obtain nephrology consult, titrate down oxygen as tolerated, obtain V/Q scan, nystatin powder for fungal rash.
--- NOTE | 2017-04-10 07:33 | RADIOLOGY REPORT ---
EXAMINATION: XR PORTABLE CHEST CLINICAL INFORMATION: Evaluate for acute changes. Acute hypoxic respiratory failure COMPARISON: Report from prior chest x-ray 06/11/2014 TECHNIQUE: Portable frontal view of the chest was obtained. FINDINGS: Lung volumes are low. There is asymmetric elevation of the right hemidiaphragm. There is bibasilar atelectasis and coarse interstitial opacity. No dense focal consolidation or mass. No pleural effusion or pneumothorax. Calcified aortic arch. Heart size upper limits of normal. No acute osseous abnormality. IMPRESSION: Low lung volumes with bibasilar atelectasis and coarse interstitial opacity. Favor bronchovascular crowding over pulmonary edema or interstitial pneumonitis.
[2017-04-10 08:17] LABS: ABSOLUTE BASOPHIL COUNT 0.1 /CUMM (0.0-0.2); ABSOLUTE EOSINOPHIL COUNT 0 /CUMM (0.0-0.7); ABSOLUTE GRANULOCYTE CT 12.4 /CUMM (1.4-6.5); ABSOLUTE LYMPH COUNT 1.4 /CUMM (1.2-3.4); BASOPHIL % 0.4 % (0.0-2.0); EOSINOPHIL % 0.2 % (0-5); GRANULOCYTE % 83.7 % (42.2-75.2); MEAN CORPUSCULAR HGB CONC 33.1 G/DL (33.0-37.0); MEAN CORPUSCULAR VOLUME 87.5 FL (81.0-99.0); MEAN PLATELET VOLUME 9.3 FL (7.4-10.4); PLATELET COUNT 247 /CUMM (130-400); RBC DISTRIBUTION WIDTH 13.6 % (11.5-14.5); RED BLOOD CELL CT 5.17 /CUMM (4.20-5.40); WHITE BLOOD CELL COUNT 14.9 /CUMM (4.8-10.8)
[2017-04-10 08:33] LABS: HEMATOCRIT 45.2 % (37-47)
--- NOTE | 2017-04-10 11:11 | ULTRASOUND REPORT ---
EXAMINATION: US TRIPLEX OF LOWER EXTREMITIES, BILATERAL CLINICAL INFORMATION: Hypoxia, cannot obtain CTA due to acute kidney injury COMPARISON: 04/22/2014 TECHNIQUE: Color-flow triplex imaging with spectral analysis and compression Doppler were performed on the lower extremities. FINDINGS: Respiratory variation, normal compression and augmented flow are noted throughout the lower extremities. The visualized common femoral vein, superficial femoral vein, profunda femoral vein, popliteal vein and midcalf peroneal and posterior tibial venous segments show no evidence of deep venous thrombosis. There is no Saxena's cyst. IMPRESSION: Normal triplex scan without evidence of deep venous thrombosis involving the lower extremities.
--- NOTE | 2017-04-10 12:54 | Cons- Endocrinology ---
General Information and HPI Consulting Request Date of Consult: 04/10/17 Requested By: medical team Reason for Consult: uncontrolled diabetes and hypoglycemia Source of Information: patient, family Exam Limitations: poor historian History of Present Illness: This 77-year-old woman was brought to the emergency room by ambulance because of a change in her behavior. Apparently she was getting very lethargic and was eating very little. The patient was recently treated for urinary tract infection by her primary care doctor. The patient was on large doses of Tresiba at home in addition to regular insulin coverage. She has a long-standing history of type 2 diabetes. His morning in the hospital her sugar was noted to be low in the 60s. The patient has a history of a previous CVA with right-sided weakness. According to her daughter she does not get out of bed. She lives with one of her daughters. Allergies/Medications Allergies: Coded Allergies: Opioids - Morphine Analogues (UNKNOWN REACTION TO "PAIN PILLS" 04/09/17) Home Med List: AMITRIPTYLINE HCL (Amitriptyline HCl) 50 MG TABLET 1 TAB PO AT BEDTIME PSYCH (Reported) Cholecalciferol (Vitamin D3) 1,000 UNIT TABLET 1 TAB PO DAILY VITAMIN ( Reported) Donepezil Hydrochloride 10 MG TAB 1 TAB PO DAILY DEMENTIA (Reported) DULOXETINE HCL (Duloxetine) 30 MG CAPSULE.DR 1 TAB PO DAILY UNKNOWN (Reported ) Folic Acid 1 MG TABLET 1 TAB PO DAILY VITAMIN (Reported) Hydroxyzine Pamoate (Vistaril) 25 MG CAP 1 CAP PO BID itching Insulin Detemir (Levemir) 100 UNIT/ML VIAL DIABETES (Reported) 30 UNITS IN AM 45 UNITS AT PM Insulin Human Regular 100 U/ML MO Unknown UNITS SC TIDAC PRN GLUCOSE CONTROL BLOOD SUGAR # OF UNITS 80-150 NONE 151-200 1 UNITS 201-250 2 UNITS 251-300 3 UNITS 301-350 4 UNITS 351-400 6 UNITS >400 8 UNITS and Call Loratadine (Claritin) 10 MG TAB 1 TAB PO DAILY SEASONAL ALLERGIES (Reported) Lorazepam (Ativan) 0.5 MG TAB 1 TAB PO Q8H PRN ANXIETY (Reported) Metoprolol Tartrate (Lopressor) 25 MG TABLET 1 TAB PO BID HEART RATE ( Reported) Nystatin (Nyamyc) 100,000 UNIT/GRAM POWDER 1 POW TOP PRN RASH (Reported) Ondansetron (Ondansetron HCl 4 MG/2 Ml Vial) 4 MG/2 ML VIAL 4 MG IV Q6P PRN NAUSEA/VOMITING Pregabalin (Lyrica) 75 MG CAPSULE 1 TAB PO BID UNKNOWN (Reported) Pyridoxine (Vitamin B6) 25 MG TAB 1 TAB PO DAILY VITAMIN (Reported) ROPINIROLE HCL (Ropinirole Hydrochloride) 2 MG TABLET 1 TAB PO AT BEDTIME RESTLESS LEGS (Reported) Rosuvastatin Calcium (Crestor) 20 MG TABLET 1 TAB PO DAILY CHOLESTEROL ( Reported) Solifenacin Succinate (Vesicare) 10 MG TABLET 1 TAB PO DAILY UNKNOWN ( Reported) TRAMADOL HCL (Tramadol HCl) 50 MG TABLET 1 TAB PO Q4H PRN PAIN (Reported) TRAZODONE HCL (Trazodone HCl) 100 MG TABLET 1 TAB PO AT BEDTIME PAIN ( Reported) VIT B COMP/C/FA/IRON/VIT E (Vitamin B Complex Tablet) 500-400-18 TABLET 1 TAB PO DAILY VITAMIN (Reported) Current Medications: Current Medications Sig/Tony Start time Last Medication Dose Route Stop Time Status Admin Acetaminophen 650 MG Q6P PRN 04/09 2245 AC PO Acetaminophen 975 MG ONCE ONE 04/09 2130 DC 04/09 PO 04/09 Acetaminophen 0 .STK-MED ONE 04/09 2124 DC PO Acetaminophen/ 1 TAB Q6P PRN 04/09 2245 AC Hydrocodone Bitart PO Amitriptyline HCl 50 MG AT BEDTIME 04/10 2200 AC PO Atorvastatin Calcium 40 MG 1700 04/10 1700 AC PO Ceftriaxone Sodium 1,000 MG DAILY 04/10 1000 AC 04/10 IV 1306 Ceftriaxone Sodium 1,000 MG ONCE ONE 04/09 194 DC 04/09 IV 04/09 1946 1925 Ceftriaxone Sodium 0 .STK-MED ONE 04/09 1858 DC .ROUTE Cholecalciferol 1,000 IU DAILY 04/10 1000 AC PO Dextrose/Sodium 1,000 ML Q10H 04/10 1300 AC Chloride IV Donepezil HCl 10 MG DAILY 04/10 1000 AC PO Duloxetine HCl 60 MG 1600 04/10 1600 AC PO Duloxetine HCl 30 MG DAILY 04/10 1000 AC PO Folic Acid 1 MG DAILY 04/10 1000 AC PO Heparin Sodium 5,000 UNIT Q8 04/10 0600 AC 04/10 (Porcine) SC 0547 Insulin Aspart 0 Q4 04/10 1400 AC SC Insulin Aspart 0 TIDAC 04/10 0800 AC SC Insulin Human Regular 0 TIDAC/HS 04/10 0800 CAN SC Loratadine 10 MG DAILY 04/10 1000 AC PO Lorazepam 0.5 MG Q3P PRN 04/10 0215 AC PO 04/17 0214 Metoprolol Tartrate 25 MG BID 04/10 1000 AC PO Morphine Sulfate 2 MG Q4 PRN 04/09 2245 AC IV Non-Formulary 0 SEE ADMIN CRITERIA 04/10 0245 UNVr Medication ANY Nystatin 1 ATTILA BID 04/10 0207 AC 04/10 TOP 0547 Ondansetron HCl 4 MG Q6P PRN 04/10 1300 AC 04/10 IV 1257 Oxybutynin Chloride 10 MG DAILY 04/10 1000 AC PO Pregabalin 75 MG BID 04/10 1000 AC PO Pyridoxine HCl 25 MG DAILY 04/10 1000 AC PO Ropinirole HCl 2 MG 2200 04/10 2200 AC PO Sodium Chloride 1,000 ML Q13H 04/10 0745 DC 04/10 IV 04/11 0944 0819 Sodium Chloride 1,000 ML ONCE ONE 04/10 0230 CAN IV 04/10 1229 Sodium Chloride 1,000 ML ONCE ONE 04/09 2245 DC 04/09 IV 04/10 0644 2316 Sodium Chloride 1,000 ML BOLUS ONE 04/09 1945 DC 04/09 IV 04/09 2044 1925 Tramadol HCl 50 MG Q4H PRN 04/10 0230 AC PO Trazodone HCl 100 MG AT BEDTIME 04/10 2200 AC PO Review of Systems Review of Systems Constitutional: Denies: chills, fever. Cardiovascular: Denies: chest pain. GI: Reports: abdominal pain (mild). Genitourinary: Reports: dysuria. Skin: Reports: no symptoms. Past History Travel History Traveled to [place] past 21 day No Medical History Blood Transfusion Hx: Yes Neurological: NONE EENT: NONE Cardiovascular: hypertension, hyperlipidemia Respiratory: NONE Gastrointestinal: GERD Hepatic: NONE Renal: NONE Musculoskeletal: osteoarthritis Psychiatric: depression Endocrine: diabetes Blood Disorders: NONE Cancer(s): NONE RN FAMILY/Reproductive: NONE Surgical History Surgical History: non-contributory Family History Relations & Conditions If Any: FATHER (ETOH in father.son- stomach cancersiblings- CAD). Relation not specified for: FH: leukemia FH: pulmonary embolism Psychosocial History Where Do You Live? Home Services at Home: None Smoking Status: Never Smoked Living Will? yes Functional Ability ADLs Needs Assist: dressing, eating, toileting, bathing. Ambulation: bed bound IADLs Needs Assist: shopping, housework, finances, food prep, telephone, transportation, medication admin. Exam & Diagnostic Data Last 24 Hrs of Vital Signs/I&O Vital Signs Date Time Temp Pulse Resp B/P B/P Pulse O2 O2 Flow FiO2 Mean Ox Delivery Rate 04/10 1202 Nasal 6.0L Cannula 04/10 0630 97.9 104 18 120/62 92 Nasal Cannula 04/10 0624 95 Nasal 6.0L Cannula 04/10 0003 95 Nasal 4.0L Cannula 04/09 2357 97.1 73 18 118/64 95 Room Air 04/09 2125 96.9 04/09 2124 96.9 85 16 94 Nasal 4.0L Cannula 04/09 1910 97.6 86 16 125/64 94 Room Air 04/09 1802 93 Nasal 4.0L Cannula 04/09 1703 97.0 90 12 148/70 95 Nasal 4.0L Cannula Intake & Output 04/10 1600 04/10 0800 05 0000 Intake Total 1050 Output Total 250 Balance 1050 -250 Intake, IV 1000 Intake, Oral 50 Output, Urine 250 Patient 275 lb Weight Weight Reported by Patient Measurement Method Vital Signs Date Time Temp Pulse Resp B/P B/P Pulse O2 O2 Flow FiO2 Mean Ox Delivery Rate 04/10 1202 Nasal 6.0L Cannula 04/10 0630 97.9 104 18 120/62 92 Nasal Cannula 04/10 0624 95 Nasal 6.0L Cannula 04/10 0003 95 Nasal 4.0L Cannula 04/09 2357 97.1 73 18 118/64 95 Room Air 04/09 2125 96.9 04/09 2124 96.9 85 16 94 Nasal 4.0L Cannula 04/09 1910 97.6 86 16 125/64 94 Room Air 04/09 180 93 Nasal 4.0L Cannula 04/09 170 97.0 90 12 148/70 95 Nasal 4.0L Cannula Intake & Output 04/10 1600 04/10 0800 05 0000 Intake Total 1050 Output Total 250 Balance 1050 -250 Intake, IV 1000 Intake, Oral 50 Output, Urine 250 Patient 275 lb Weight Weight Reported by Patient Measurement Method Physical Exam General Appearance: lethargic Head: normal appearance Eyes: Bilateral: normal appearance. Neck: normal inspection Respiratory: normal breath sounds, lungs clear Cardiovascular: regular rate/rhythm Gastrointestinal: normal bowel sounds, soft Extremities: normal inspection Neurologic/Psych: right-sided weakness Labs/Price Results: Laboratory Tests 04/10 04/10 0800 0735 Blood Gas pH (7.35 - 7.45 PH) 7.41 pCO2 (35 - 45 TORR) 34 L pO2 (80 - 100 TORR) 88 HCO3 (21 - 28 MEQ/L) 21 ABG O2 Sat (Measured) (>96.0 %) 95.0 L Carboxyhemoglobin (1.5 - 5.0 %) 1.0 L O2 Concentration % 6LPM O2 Delivery Method NC Chemistry Sodium (137 - 145 mmol/L) 137 Potassium (3.5 - 5.1 mmol/L) 4.4 Chloride (98 - 107 mmol/L) 99 Carbon Dioxide (22 - 30 mmol/L) 24 Anion Gap (5 - 16) 14 BUN (7 - 17 mg/dL) 26 H Creatinine (0.5 - 1.0 mg/dL) 1.7 H Estimated GFR (>60 ml/min) 29 L BUN/Creatinine Ratio (7 - 25 %) 15.3 Hematology CBC w Diff NO MAN DIFF REQ WBC (4.8 - 10.8 /CUMM) 14.9 H RBC (4.20 - 5.40 /CUMM) 5.17 Hgb (12.0 - 16.0 G/DL) 15.0 Hct (37 - 47 %) 45.2 MCV (81.0 - 99.0 FL) 87.5 MCH (27.0 - 31.0 PG) 29.0 RDW (11.5 - 14.5 %) 13.6 Plt Count (130 - 400 /CUMM) 247 MPV (7.4 - 10.4 FL) 9.3 Gran % (42.2 - 75.2 %) 83.7 H Lymphocytes % (20.5 - 51.1 %) 9.2 L Monocytes % (1.7 - 9.3 %) 6.5 Eosinophils % (0 - 5 %) 0.2 Basophils % (0.0 - 2.0 %) 0.4 Absolute Granulocytes (1.4 - 6.5 /CUMM) 12.4 H Absolute Lymphocytes (1.2 - 3.4 /CUMM) 1.4 Absolute Monocytes (0.10 - 0.60 /CUMM) 1.0 H Absolute Eosinophils (0.0 - 0.7 /CUMM) 0 Absolute Basophils (0.0 - 0.2 /CUMM) 0.1 PUBS MCHC (33.0 - 37.0 G/DL) 33.1 Miscellaneous Phlebotomy Draw Site RIGHT RADIAL 04/09 04/09 1730 1708 Chemistry Sodium (137 - 145 mmol/L) 134 L Potassium (3.5 - 5.1 mmol/L) 4.9 Chloride (98 - 107 mmol/L) 96 L Carbon Dioxide (22 - 30 mmol/L) 26 Anion Gap (5 - 16) 13 BUN (7 - 17 mg/dL) 19 H Creatinine (0.5 - 1.0 mg/dL) 1.3 H Estimated GFR (>60 ml/min) 40 L BUN/Creatinine Ratio (7 - 25 %) 14.6 Glucose (65 - 99 mg/dL) 91 Calcium (8.4 - 10.2 mg/dL) 9.1 Total Bilirubin (0.2 - 1.3 mg/dL) 1.0 AST (14 - 36 U/L) 28 ALT (9 - 52 U/L) 32 Alkaline Phosphatase (<127 U/L) 124 Troponin I (< 0.11 ng/ml) < 0.01 Total Protein (6.3 - 8.2 g/dL) 7.2 Albumin (3.5 - 5.0 g/dL) 3.6 Globulin (1.9 - 4.2 gm/dL) 3.6 Albumin/Globulin Ratio (1.1 - 2.2 %) 1.0 L Lipase (23 - 300 U/L) 83 Hematology CBC w Diff NO MAN DIFF REQ WBC (4.8 - 10.8 /CUMM) 13.4 H RBC (4.20 - 5.40 /CUMM) 5.86 H Hgb (12.0 - 16.0 G/DL) 16.8 H Hct (37 - 47 %) 51.4 H MCV (81.0 - 99.0 FL) 87.8 MCH (27.0 - 31.0 PG) 28.6 RDW (11.5 - 14.5 %) 13.8 Plt Count (130 - 400 /CUMM) 226 MPV (7.4 - 10.4 FL) 9.2 Gran % (42.2 - 75.2 %) 85.3 H Lymphocytes % (20.5 - 51.1 %) 7.6 L Monocytes % (1.7 - 9.3 %) 6.7 Eosinophils % (0 - 5 %) 0.2 Basophils % (0.0 - 2.0 %) 0.2 Absolute Granulocytes (1.4 - 6.5 /CUMM) 11.4 H Absolute Lymphocytes (1.2 - 3.4 /CUMM) 1.0 L Absolute Monocytes (0.10 - 0.60 /CUMM) 0.9 H Absolute Eosinophils (0.0 - 0.7 /CUMM) 0 Absolute Basophils (0.0 - 0.2 /CUMM) 0 PUBS MCHC (33.0 - 37.0 G/DL) 32.6 L Urines Urine Color (YEL,AMB,STR) YEL Urine Clarity (CLEAR) CLDY H Urine pH (5.0 - 8.0) 7.0 Ur Specific [place] (1.001 - 1.035) 1.020 Urine Protein (NEG,<30 MG/DL) 100 H Urine Ketones (NEG) NEG Urine Nitrite (NEG) POS H Urine Bilirubin (NEG) NEG Urine Urobilinogen (0.1 - 1.0 EU/dl) 4.0 H Ur Leukocyte Esterase (NEG) LARGE H Ur Microscopic SEDIMENT EXAMINED Urine RBC (0 - 5 /HPF) >75 H Urine WBC (0 - 2 /HPF) > 75 H Ur Epithelial Cells (NONE,FEW) RARE Urine Bacteria (NEG/NONE) MANY H Urine Mucus (FEW,NONE) RARE Urine Hemoglobin (NEG) LARGE H Urine Glucose (N MG/DL) NEG 04/09 1708 Urines Ur Random Creatinine (mg/dL) 64.4 Ur Random Sodium (30 - 90 mmol/L) 147 H Ur Random Potassium (mmol/L) 54.2 Fraction Sodium Excret (<1% %) 3.2 H Assessment/Plan Assessment/Plan Patient has a history of type 2 diabetes associated with morbid obesity. She is apparently bedridden at home. Since being in the hospital, she has had low sugar which could contribute to her symptoms of dizziness. She is eating very little. She is on Tresiba at home as well as regular insulin coverage before meals.. I would discontinue the Tresiba. Since the patient is eating very little should place the patient on IV fluids in the form of D5 half-normal saline at 75 mL per hour. In addition we should place her on NovoLog coverage every 4 hours. NovoLog coverage every 4 hours should be less than 150 give no insulin, 151-200 give 2 units NovoLog, 201-250 give 3 units NovoLog, 251-300 give 4 units NovoLog , 301-350 give 5 units NovoLog, 351-400 give 6 units NovoLog. This patient suffers from polypharmacy. She is on the duloxetine, amitriptyline , trazodone, and Lyrica. All of these could be affecting her mental status, her appetite, and her behavior. She does complain of pain in her right leg but these drugs need to be reevaluated and tapered gradually. The patient also has acute renal insufficiency. She needs a renal ultrasound to rule out obstruction. So the patient needs thyroid function test to be done including a free T4 and TSH. Consult Acknowledgment - Thank you for your consult request.
--- NOTE | 2017-04-10 13:11 | NUR ---
PT C/O NAUSEA, UNABLE TO TAKE PO MEDS, SAYED NOTIFIED,TALA GIVEN
--- NOTE | 2017-04-10 13:29 | NUCLEAR MEDICINE REPORT ---
EXAMINATION: PULMONARY VENTILATION PERFUSION STUDY CLINICAL INFORMATION: Hypoxia. COMPARISON: No previous radionuclide lung scan is available for comparison. A chest radiograph dated 04/10/2017, the same date as this lung scan, is available for comparison. TECHNIQUE: Serial gamma scintillation camera images were obtained over the posterior chest during the single breath, equilibrium rebreathing and washout of 16.0 mCi Xe 133 gas. The patient then received 4.3 mCi Tc-99m MAA intravenously and a 6-view perfusion study was performed. FINDINGS: Ventilation images: The single breath image is uninterpretable because of the patient's inability to cooperate resulting in minimal activity in the lungs. Subsequent equilibrium image is of good quality. This shows homogeneous distribution of activity in the left lung except for minimally decreased activity at the left lung base, and a mild diffuse decrease in activity in the right lung with markedly diminished activity in the right lung base, probably due to elevation of the right hemidiaphragm. During the washout phase there is a focus of moderate retention laterally at the left lung base. Faint diffuse retention is noted in the liver, likely due to hepatic steatosis. Perfusion images: No segmental perfusion defects are present. There is diffusely decreased activity at the right lung base right lower lobe well matched to the ventilation images and likely due to elevation of the right hemidiaphragm. There is minimal nonsegmental perfusion abnormality at the left lung base, well matched to the ventilation abnormality at this site. The cardiac silhouette and mediastinum appear moderately dilated. The chest radiograph dated 04/10/2017 shows low lung volumes and bibasilar atelectasis an elevation of the right hemidiaphragm, the latter well matched to the ventilation and perfusion findings described above. IMPRESSION: Very low probability of pulmonary embolism.
--- NOTE | 2017-04-10 14:20 | ULTRASOUND REPORT ---
EXAMINATION: US RETROPERITONEAL COMPLETE (RENAL) CLINICAL INFORMATION: Elevated creatinine in spite of fluid resuscitation. Suspected obstructive uropathy.. COMPARISON: None TECHNIQUE: Real-time imaging of the kidneys and bladder. FINDINGS: RIGHT KIDNEY: 11.0 x 5.5 x 5.3 cm (SAG x AP x TRV). The kidney is normal in size, contour, and echogenicity. Renal cortical thickness is normal. No calculi or focal parenchymal lesions. No hydronephrosis. LEFT KIDNEY: 10.8 x 6.3 x 4.1 cm (SAG x AP x TRV). The kidney is normal in size, contour, and echogenicity. Renal cortical thickness is normal. No calculi or focal parenchymal lesions. No hydronephrosis. BLADDER: The bladder was empty at the time of the examination. There was a Quevedo's catheter in place. Bilateral ureteric jets are not visualized. IMPRESSION: Bilateral normal size kidneys, and no evidence of any hydronephrosis on either side. The urinary bladder was empty at the time of the examination, and accordingly not evaluated.
[2017-04-10 15:29] VITALS: BP 120/68
--- NOTE | 2017-04-10 15:58 | Cons- Nephrology ---
General Information and HPI Consulting Request Date of Consult: 04/10/17 Requested By: DILIP STODDARD MD Reason for Consult: Rising serum creatinine History of Present Illness: The patient is a 77-year-old woman admitted yesterday with dysuria, frequency and altered mental status. She is growing gram-negative rods in her urine. She was given 1 dose of Bactrim as an outpatient. I am being asked to see her because of a rising creatinine. In 2014 her creatinine was 0.8. Yesterday at the time of admission her creatinine was 1.3 rising to 1.7 today prompting this consultation request. Electrolytes have not been a problem. She continues to be somewhat altered and has been started on ceftriaxone for urinary tract infection. Renal ultrasound shows no obstruction and the bladder was decompressed by a Quevedo catheter. A VQ scan was done which showed very low probability for pulmonary embolism. Although there is some discrepancy in the history between the patient and her daughters, she may or may not have been taking relatively low doses of Aleve on a regular basis as an outpatient. There has been no exposure to parenteral contrast. There also does not appear to be any history of vomiting or diarrhea. Recent food and fluid intake information is inconclusive. It should be noted that she was clearly hemoconcentrated at time of admission with a hemoglobin of 16.8 and her blood pressures have been "normal" with systolics of 120 - perhaps noteworthy and a markedly obese patient with a history of hypertension. Past medical history is extensive and includes diabetes mellitus, hypertension, hyperlipidemia, CVA, morbid obesity, obstructive sleep apnea, Klebsiella urinary tract infection with sepsis, diverticular bleed and "mild dementia". Medications: See below Allergies: Opioids Family history: Negative for renal disease in her parents or other family members, positive for diabetes mellitus Social history: Lives at home with 2 of her 7 children, nonsmoker, no history of alcohol or drug abuse. Allergies/Medications Allergies: Coded Allergies: Opioids - Morphine Analogues (UNKNOWN REACTION TO "PAIN PILLS" 04/09/17) Home Med List: AMITRIPTYLINE HCL (Amitriptyline HCl) 50 MG TABLET 1 TAB PO AT BEDTIME PSYCH (Reported) Cholecalciferol (Vitamin D3) 1,000 UNIT TABLET 1 TAB PO DAILY VITAMIN ( Reported) Donepezil Hydrochloride 10 MG TAB 1 TAB PO DAILY DEMENTIA (Reported) DULOXETINE HCL (Duloxetine) 30 MG CAPSULE.DR 1 TAB PO DAILY UNKNOWN (Reported ) Folic Acid 1 MG TABLET 1 TAB PO DAILY VITAMIN (Reported) Hydroxyzine Pamoate (Vistaril) 25 MG CAP 1 CAP PO BID itching Insulin Detemir (Levemir) 100 UNIT/ML VIAL DIABETES (Reported) 30 UNITS IN AM 45 UNITS AT PM Insulin Human Regular 100 U/ML MO Unknown UNITS SC TIDAC PRN GLUCOSE CONTROL BLOOD SUGAR # OF UNITS 80-150 NONE 151-200 1 UNITS 201-250 2 UNITS 251-300 3 UNITS 301-350 4 UNITS 351-400 6 UNITS >400 8 UNITS and Call Loratadine (Claritin) 10 MG TAB 1 TAB PO DAILY SEASONAL ALLERGIES (Reported) Lorazepam (Ativan) 0.5 MG TAB 1 TAB PO Q8H PRN ANXIETY (Reported) Metoprolol Tartrate (Lopressor) 25 MG TABLET 1 TAB PO BID HEART RATE ( Reported) Nystatin (Nyamyc) 100,000 UNIT/GRAM POWDER 1 POW TOP PRN RASH (Reported) Ondansetron (Ondansetron HCl 4 MG/2 Ml Vial) 4 MG/2 ML VIAL 4 MG IV Q6P PRN NAUSEA/VOMITING Pregabalin (Lyrica) 75 MG CAPSULE 1 TAB PO BID UNKNOWN (Reported) Pyridoxine (Vitamin B6) 25 MG TAB 1 TAB PO DAILY VITAMIN (Reported) ROPINIROLE HCL (Ropinirole Hydrochloride) 2 MG TABLET 1 TAB PO AT BEDTIME RESTLESS LEGS (Reported) Rosuvastatin Calcium (Crestor) 20 MG TABLET 1 TAB PO DAILY CHOLESTEROL ( Reported) Solifenacin Succinate (Vesicare) 10 MG TABLET 1 TAB PO DAILY UNKNOWN ( Reported) TRAMADOL HCL (Tramadol HCl) 50 MG TABLET 1 TAB PO Q4H PRN PAIN (Reported) TRAZODONE HCL (Trazodone HCl) 100 MG TABLET 1 TAB PO AT BEDTIME PAIN ( Reported) VIT B COMP/C/FA/IRON/VIT E (Vitamin B Complex Tablet) 500-400-18 TABLET 1 TAB PO DAILY VITAMIN (Reported) Review of Systems Review of Systems Constitutional: Reports: no symptoms. EENTM: Reports: no symptoms. Cardiovascular: Reports: no symptoms. Respiratory: Reports: no symptoms. GI: Reports: no symptoms. Genitourinary: Reports: dysuria, frequency. Musculoskeletal: Reports: back pain, joint pain, muscle pain. Skin: Reports: no symptoms. 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 Relation not specified for: FH: leukemia FH: pulmonary embolism Psychosocial History Where Do You Live? Home Services at Home: None Smoking Status: Never Smoked Living Will? yes Functional Ability ADLs Needs Assist: dressing, eating, toileting, bathing. Ambulation: bed bound IADLs Needs Assist: shopping, housework, finances, food prep, telephone, transportation, medication admin. Exam & Diagnostic Data Vital Signs and I&O Vital Signs Date Time Temp Pulse Resp B/P B/P Pulse O2 O2 Flow FiO2 Mean Ox Delivery Rate 04/10 1529 97.8 115 22 120/68 94 04/10 1202 Nasal 6.0L Cannula 04/10 0630 97.9 104 18 120/62 92 Nasal Cannula 04/10 0624 95 Nasal 6.0L Cannula 04/10 0003 95 Nasal 4.0L Cannula 04/09 2357 97.1 73 18 118/64 95 Room Air 04/09 2125 96.9 04/09 2124 96.9 85 16 94 Nasal 4.0L Cannula 04/09 1910 97.6 86 16 125/64 94 Room Air 04/09 1802 93 Nasal 4.0L Cannula 04/09 1703 97.0 90 12 148/70 95 Nasal 4.0L Cannula Intake & Output 04/10 1600 04/10 0400 04/09 1600 04/09 0400 04/08 1600 04/08 0400 Intake Total 2100 Output Total 150 250 Balance 1950 -250 Intake, IV 1600 Intake, Oral 500 Output, Urine 150 250 Patient 275 lb Weight Weight Reported by Patient Measurement Method Physical Exam: General: Morbidly obese white female, somewhat confused, in no acute distress Skin: No rash or jaundice HEENT: Conjunctivae pink, sclerae anicteric, mucous membranes moist Neck: Without masses or thyromegaly, no supraclavicular or cervical adenopathy Chest: Clear anterolaterally Heart: Regular rate and rhythm without S3 or rub, heart sounds distant Abdomen: Markedly obese, soft and nontender without palpable masses or organomegaly] Extremities: Without cyanosis or significant edema Neuro: No asterixis or myoclonus Assessment/Plan Assessment/Recommendations Assessment: 77-year-old woman with a multitude of comorbidities including morbid obesity, diabetes mellitus and hypertension and also with a history of urinary tract infection with sepsis in the past, now comes in with what appears to be another urinary tract infection, altered mental status and acute kidney injury with a rising serum creatinine. There is no obstruction by ultrasound. I don't believe that she was significantly exposed to any potential nephrotoxins. My clinical impression is that she is volume contracted as strongly suggested by her hemoconcentrated hemoglobin and relatively "normal" blood pressure. Her volume status is very difficult to ascertain clinically because of her morbid obesity. Other possibilities include acute tubular necrosis in the setting of sepsis and rhabdomyolysis which is unlikely. Recommendations: 1. Would obtain blood cultures 2. Check CK level 3. Trial of IV normal saline at 125 mL per hour 4. Monitor intake and output, chemistries daily 5. Check phosphorus, magnesium and albumin levels Thank you for asking us to see this patient. We will follow along with you.
[2017-04-10 21:59] VITALS: BP 120/80
[2017-04-11 07:51] VITALS: BP 120/60
[2017-04-11 08:37] LABS: ABSOLUTE BASOPHIL COUNT 0 /CUMM (0.0-0.2); ABSOLUTE EOSINOPHIL COUNT 0.1 /CUMM (0.0-0.7); ABSOLUTE GRANULOCYTE CT 6.7 /CUMM (1.4-6.5); ABSOLUTE LYMPH COUNT 1.5 /CUMM (1.2-3.4); ABSOLUTE MONOCYTE COUNT 0.9 /CUMM (0.10-0.60); WHITE BLOOD CELL COUNT 9.3 /CUMM (4.8-10.8)
--- NOTE | 2017-04-11 09:19 | PN- Housestaff ---
See Addendum Subjective Follow-up For: Klebsiella UTI/Cystitis GIORGI Complaints: Low back pain Subjective: Pt lying in bed, somewhat lethargic but arousable and able to answer questions appropriately. Per RN, pt complains of nausea and has not been able to eat or take her oral medications since morning. Both daughters at bedside say she only drank hot chocolate yesterday but in general they feel she looks a little better today compared to yesterday and her urine color is clearing. Review of Systems Constitutional: Reports: no symptoms, see HPI. Objective Last 24 Hrs of Vital Signs/I&O Vital Signs Date Time Temp Pulse Resp B/P B/P Pulse O2 O2 Flow FiO2 Mean Ox Delivery Rate 04/11 0751 98.7 95 20 120/60 99 Nasal 6.0L Cannula 04/11 0000 96 Nasal 6.0L Cannula 04/10 2159 99.0 100 18 120/80 96 Nasal 6.0L Cannula 04/10 2127 100 120/80 04/10 1600 92 Nasal 6.0L Cannula 04/10 1529 97.8 115 22 120/68 94 04/10 1202 Nasal 6.0L Cannula Intake & Output 04/11 1600 04/11 0800 04/11 0000 Intake Total 1000 1480 Output Total 1400 Balance -400 1480 Intake, IV 1000 1000 Intake, Oral 480 Number 1 Bowel Movements Output, Urine 1400 Physical Exam General Appearance: Alert, Oriented X3, Cooperative, MORBIDLY OBESE HEENT: PERRLA, EOMI, Mucous Membr. moist/pink Cardiovascular: Regular Rate, Normal S1, Normal S2 Lungs: Clear to Auscultation, Normal Air Movement Abdomen: Normal Bowel Sounds, Soft, No Tenderness Neurological: Normal Speech, Strength at 5/5 X4 Ext, Normal Tone Extremities: No Edema Current Medications: Current Medications Sig/Tony Start time Last Medication Dose Route Stop Time Status Admin Acetaminophen 650 MG Q6P PRN 04/09 2245 AC PO Acetaminophen/ 1 TAB Q6P PRN 04/09 2245 AC Hydrocodone Bitart PO Amitriptyline HCl 50 MG AT BEDTIME 04/10 2200 AC 04/10 PO 2128 Atorvastatin Calcium 40 MG 1700 04/10 1700 AC 04/10 PO 1601 Ceftriaxone Sodium 1,000 MG DAILY 04/10 1000 AC 04/10 IV 1306 Cholecalciferol 1,000 IU DAILY 04/10 1000 AC PO Dextrose/Sodium 1,000 ML Q10H 04/10 1300 AC 04/11 [place] 0848 Donepezil HCl 10 MG DAILY 04/10 1000 DC PO Duloxetine HCl 60 MG 1600 04/10 1600 AC 04/10 PO 1601 Duloxetine HCl 30 MG DAILY 04/10 1000 DC PO Folic Acid 1 MG DAILY 04/10 1000 AC PO Heparin Sodium 5,000 UNIT Q8 04/10 0600 AC 04/11 (Porcine) SC 0647 Insulin Aspart 0 Q4 04/10 1400 AC 04/11 SC 0647 Insulin Aspart 0 TIDAC 04/10 0800 DC SC Loratadine 10 MG DAILY 04/10 1000 AC 04/10 PO 1601 Lorazepam 0.5 MG Q3P PRN 04/10 0215 AC PO 04/17 0214 Metoprolol Tartrate 25 MG BID 04/10 1000 AC 04/10 PO 2127 Morphine Sulfate 2 MG Q4 PRN 04/09 2245 AC IV Non-Formulary 0 SEE ADMIN CRITERIA 04/10 0245 DC Medication ANY Nystatin 1 ATTILA BID 04/10 0207 AC 04/10 TOP 2128 Ondansetron HCl 4 MG Q6P PRN 04/10 1300 AC 04/11 IV 0854 Oxybutynin Chloride 10 MG DAILY 04/10 1000 AC 04/10 PO 1601 Patient Medication 1 ED .STK-MED ONE 04/10 1356 DC Teaching ED 04/10 1357 Pregabalin 75 MG BID 04/10 1000 DC PO Pyridoxine HCl 25 MG DAILY 04/10 1000 DC PO Ropinirole HCl 2 MG AT BEDTIME 04/10 2330 AC PO Ropinirole HCl 2 MG 2200 04/10 2200 CAN PO Sodium Chloride 1,000 ML Q13H 04/10 0745 DC 04/10 IV 04/11 0944 0819 Tramadol HCl 50 MG Q4H PRN 04/10 0230 AC PO Trazodone HCl 100 MG AT BEDTIME 04/10 2200 AC 04/10 PO 2127 Last 24 Hrs of Lab/Price Results Last 24 Hrs of Labs/Mics: Laboratory Tests 04/11/17 0715: Anion Gap 10, Estimated GFR 31 L, BUN/Creatinine Ratio 15.6, CBC w Diff Pending , WBC Pending, RBC Pending, Hgb Pending, Hct Pending, MCV Pending, MCH Pending, RDW Pending, Plt Count Pending, MPV Pending, PUBS MCHC Pending 04/10/17 1455: Anion Gap 13, Estimated GFR 26 L, BUN/Creatinine Ratio 14.7, Phosphorus 5.2 H, Magnesium 1.6, Creatine Kinase 104, Albumin 2.7 L Orders Fingersticks (last 24 hrs): 96-257 Lines/Diet/Fluids Fluids/Infusions: IV D5/1/2 NS Catheters/Tubes: metcalf Metcalf Still Needed? Yes Lines: peripheral lines Assessment/Plan Assessment: 77 y/o F with PMH of T2DM, stroke with right sided residual weakness, HTN, Bacterial Endocarditis, recurrent UTI, sent to the ED for increased confusion and poor PO intake. She was diagnosed with a UTI by her PCP 2 days ago, and was put on Bactrim. Current urine cultures are growing Klebsiella. In the ED, pertinent labs showed, WBC 13.4, H/H 16.8/51.4, Creatinine 1.3 (increased from baseline of 0.8). She is currently admitted to the General Medicine floor for further management. Problem List: * Klebsiella UTI * GIORGI likely 2/2 Dehydration * Fungal rash of groin * T2DM on Tresiba at home * Hyperlipidemia * Hypertension * Dementia Plan: * Continue monitoring on Gen Med * WBC normalized. Continue Ceftriaxone for now, as current organism is sensitive to it. * Creatinine is trending down. Renal USG shows no renal obstruction. Bladder could not be evaluated due to being empty * Continue IV hydration with D5/1/2 NS * Vitals are stable; Closely monitor vitals and I/Os * Continue Q4hr blood glucose checks and Novolog per Endo recs * Lower extremity doppler and V/Q scan to r/o PE both neg * Continue Nystatin powder for fungal rash. * Endo and Nephro input appreciated * Continue Zofran for nausea * Continue other home medications for now * Daily BEP to monitor renal fxn. Avoid nephrotoxic meds. * DVT PPx: Heparin SubQ * Pain Pathway: Tylenol, Vicodin, Morphine * Code Status: DNR/DNI Problem List: 1. UTI (urinary tract infection) 2. Acute kidney injury Pain Ratin Pain Location: lower back Pain Goal: Remain pain free Pain Plan: per EMR Tomorrow's Labs & Rationales: BEP-Monitor kidney function DVT/Prophylaxis: pharmacological
[2017-04-11 09:22] LABS: BASOPHIL % 0.4 % (0.0-2.0); EOSINOPHIL % 1.1 % (0-5); GRANULOCYTE % 72.3 % (42.2-75.2); HEMATOCRIT 40.3 % (37-47); MEAN CORPUSCULAR HGB 28.7 PG (27.0-31.0); MEAN CORPUSCULAR HGB CONC 32.7 G/DL (33.0-37.0); MEAN CORPUSCULAR VOLUME 87.7 FL (81.0-99.0); MEAN PLATELET VOLUME 9.9 FL (7.4-10.4); PLATELET COUNT 216 /CUMM (130-400); RBC DISTRIBUTION WIDTH 13.9 % (11.5-14.5); RED BLOOD CELL CT 4.59 /CUMM (4.20-5.40)
--- NOTE | 2017-04-11 10:00 | NUR ---
PT C/O NAUSEA, REFUSE PO MEDS, NO PO INTAKE, ZOFRAN GIVEN, DR. MACARIO NOTIFIED, CONTINUE TO MONITOR
--- NOTE | 2017-04-11 10:57 | PN- Diabetes ---
Assessment/Plan Assessment: Patient states she feels better this morning. She did eat some breakfast. Her blood sugar became high this morning at 232 before breakfast. She is on sliding scale NovoLog starting with the sugar above 150. The patient's thyroid function tests show a TSH of 4.87 with a free T4 1 0.64. This could either be sick euthyroid or subclinical hypothyroidism. The patient states she is coughing up some blood tinged material from her lungs. The Lyrica has been stopped and she is much brighter this morning. Plan: Suggest begin Levemir 5 units twice a day the first dose this morning. Continue to monitor blood sugars 4 times a day before meals and at bedtime. Continue present sliding-scale NovoLog but switch the coverage to before meals.. I do not think she needs to be started on thyroid hormone at this time. Further adjustments in her other medications will probably need to be made as she suffers from polypharmacy. Renal function is improving and we should probably continue to hydrate the patient carefully. However we can take the glucose out of the IV and hydrated with normal saline at 75 mL an hour. Subjective Subjective: States she feels better Review of Systems Constitutional: Denies: chills, fever. Cardiovascular: Denies: chest pain. Respiratory: Denies: short of breath. Gastrointestinal: Denies: bloating, nausea, vomiting. Objective Last 24 Hrs of Vital Signs/I&O Vital Signs Date Time Temp Pulse Resp B/P B/P Pulse O2 O2 Flow FiO2 Mean Ox Delivery Rate 04/11 0751 98.7 95 20 120/60 99 Nasal 6.0L Cannula 04/11 0000 96 Nasal 6.0L Cannula 04/10 2159 99.0 100 18 120/80 96 Nasal 6.0L Cannula 04/10 2127 100 120/80 04/10 1600 92 Nasal 6.0L Cannula 04/10 1529 97.8 115 22 120/68 94 04/10 1202 Nasal 6.0L Cannula Intake & Output 04/11 1600 04/11 0800 04/11 0000 Intake Total 1000 1480 Output Total 1400 Balance -400 1480 Intake, IV 1000 1000 Intake, Oral 480 Number 1 Bowel Movements Output, Urine 1400 Patient 275 lb Weight Vital Signs Date Time Temp Pulse Resp B/P B/P Pulse O2 O2 Flow FiO2 Mean Ox Delivery Rate 04/11 0751 98.7 95 20 120/60 99 Nasal 6.0L Cannula 04/11 0000 96 Nasal 6.0L Cannula 04/10 2159 99.0 100 18 120/80 96 Nasal 6.0L Cannula 04/10 2127 100 120/80 05/ 1600 92 Nasal 6.0L Cannula 04/10 1529 97.8 115 22 120/68 94 04/10 1202 Nasal 6.0L Cannula Intake & Output 04/11 1600 / 0800 04/11 0000 Intake Total 1000 1480 Output Total 1400 Balance -400 1480 Intake, IV 1000 1000 Intake, Oral 480 Number 1 Bowel Movements Output, Urine 1400 Patient 275 lb Weight Physical Exam General Appearance: alert, awake, comfortable Head: normal appearance Neck: normal inspection Respiratory: normal breath sounds Cardiovascular: regular rate/rhythm Abdomen: normal bowel sounds Current Medications: Current Medications Sig/Tony Start time Last Medication Dose Route Stop Time Status Admin Acetaminophen 650 MG Q6P PRN 04/09 2245 AC PO Acetaminophen/ 1 TAB Q6P PRN 04/09 2245 AC Hydrocodone Bitart PO Amitriptyline HCl 50 MG AT BEDTIME 04/10 2200 AC 04/10 PO 2128 Atorvastatin Calcium 40 MG 1700 05/ 1700 AC 04/10 PO 1601 Ceftriaxone Sodium 1,000 MG DAILY 04/10 1000 AC 04/11 IV 0943 Cholecalciferol 1,000 IU DAILY 04/10 1000 AC PO Dextrose/Sodium 1,000 ML Q10H 04/10 1300 AC 04/11 Chloride IV 0848 Donepezil HCl 10 MG DAILY 04/10 1000 DC PO Duloxetine HCl 60 MG 1600 / 1600 AC 04/10 PO 1601 Duloxetine HCl 30 MG DAILY 04/10 1000 DC PO Folic Acid 1 MG DAILY 04/10 1000 AC PO Heparin Sodium 5,000 UNIT Q8 04/10 0600 AC 04/11 (Porcine) SC 0647 Insulin Aspart 0 Q4 04/10 1400 AC 04/11 SC 0954 Insulin Aspart 0 TIDAC 04/10 0800 DC SC Loratadine 10 MG DAILY / 1000 AC 04/10 PO 1601 Lorazepam 0.5 MG Q3P PRN 04/10 0215 AC PO 04/17 0214 Metoprolol Tartrate 25 MG BID / 1000 AC 04/10 PO 2127 Morphine Sulfate 2 MG Q4 PRN 04/09 2245 AC 04/11 IV 0943 Non-Formulary 0 SEE ADMIN CRITERIA 04/10 0245 DC Medication ANY Nystatin 1 ATTILA BID 04/10 0207 AC 04/11 TOP 0950 Ondansetron HCl 4 MG Q6P PRN 04/10 1300 AC 04/11 IV 0854 Oxybutynin Chloride 10 MG DAILY 04/10 1000 AC 04/10 PO 1601 Patient Medication 1 ED .STK-MED ONE 04/10 1356 DC Teaching ED 04/10 1357 Pregabalin 75 MG BID 04/10 1000 DC PO Pyridoxine HCl 25 MG DAILY 04/10 1000 DC PO Ropinirole HCl 2 MG AT BEDTIME 04/10 2330 AC PO Ropinirole HCl 2 MG 2200 04/10 2200 CAN PO Tramadol HCl 50 MG Q4H PRN 04/10 0230 AC PO Trazodone HCl 100 MG AT BEDTIME 04/10 2200 AC 04/10 PO 2127 Findings Pertinent Lab/Price Results: Laboratory Tests 04/11/17 0715: Anion Gap 10, Estimated GFR 31 L, BUN/Creatinine Ratio 15.6, TSH 4.870 H, Free T4 1.64, CBC w Diff NO MAN DIFF REQ, RBC 4.59, MCV 87.7, MCH 28.7, RDW 13.9, MPV 9.9, Gran % 72.3, Lymphocytes % 16.0 L, Monocytes % 10.2 H, Eosinophils % 1.1, Basophils % 0.4, Absolute Granulocytes 6.7 H, Absolute Lymphocytes 1.5, Absolute Monocytes 0.9 H, Absolute Eosinophils 0.1, Absolute Basophils 0, PUBS MCHC 32.7 L 04/10/17 1455: Anion Gap 13, Estimated GFR 26 L, BUN/Creatinine Ratio 14.7, Phosphorus 5.2 H, Magnesium 1.6, Creatine Kinase 104, Albumin 2.7 L
[2017-04-11 14:38] VITALS: BP 120/80
--- NOTE | 2017-04-11 15:29 | PN- Nephrology ---
Assessment/Plan Assessment: GIORGI - 2/2 pre-renal azotemia vs ATN in the setting of a UTI - improving. Urine output has really picked up and SCr is starting to improve. Reasonable to cont IVF until PO intake is improved. May need to decrease rate depending on respiratory status. Suggestion: -Would plan for another liter total of IVF and then would hold Please call [phone] with ?'s Subjective Subjective: SCr down to 1.6 2.9L UOP Total of 1850cc IVF Says breathing is OK Daughter says not taking in great PO UCx +Klebsiella; WBC down to 9.3; afebrile CK level normal Objective Vital Signs and I&Os Vital Signs Date Time Temp Pulse Resp B/P B/P Pulse O2 O2 Flow FiO2 Mean Ox Delivery Rate 04/11 1438 98.9 101 20 120/80 96 04/11 0800 99 Nasal 6.0L Cannula 04/11 0751 98.7 95 20 120/60 99 Nasal 6.0L Cannula 04/11 0000 96 Nasal 6.0L Cannula 04/10 2159 99.0 100 18 120/80 96 Nasal 6.0L Cannula 04/10 2127 100 120/80 04/10 1600 92 Nasal 6.0L Cannula 04/10 1529 97.8 115 22 120/68 94 Intake & Output 04/11 1600 04/11 0400 04/10 1600 04/10 0400 04/09 1600 04/09 0400 Intake Total 2250 1480 2100 Output Total 2900 150 250 Balance -650 1480 1950 -250 Intake, IV 1850 1000 1600 Intake, Oral 400 480 500 Number 1 Bowel Movements Output, Urine 2900 150 250 Patient 275 lb 275 lb Weight Weight Reported by Patient Measurement Method Physical Exam: Gen - morbidly obese, NAD HEENT - supple, JVP not up CV - RRR Chest - clear Abd - morbidly obese, soft, nontender Ext - no edema Neuro - AOX3, grossly nonfocal Current Medications: Current Medications Sig/Tony Start time Last Medication Dose Route Stop Time Status Admin Acetaminophen 650 MG Q6P PRN 04/09 2245 AC PO Acetaminophen/ 1 TAB Q6P PRN 04/09 2245 AC 04/11 Hydrocodone Bitart PO 1517 Amitriptyline HCl 50 MG AT BEDTIME 04/10 2200 AC 04/10 PO 2127 Atorvastatin Calcium 40 MG 1700 04/10 1700 AC 05 PO 1601 Ceftriaxone Sodium 1,000 MG DAILY 04/10 1000 AC 04/11 IV 0943 Cholecalciferol 1,000 IU DAILY 04/10 1000 AC PO Dextrose/Sodium 1,000 ML Q10H 04/10 1300 DC 04/11 Chloride IV 0848 Duloxetine HCl 60 MG 1600 05/ 1600 AC 04/10 PO 1601 Folic Acid 1 MG DAILY 04/10 1000 AC PO Heparin Sodium 5,000 UNIT Q8 04/10 0600 AC 04/11 (Porcine) SC 1437 Insulin Aspart 0 TIDAC 04/11 1200 AC 04/11 SC 1223 Insulin Aspart 0 Q4 04/10 1400 DC 04/11 SC 0954 Insulin Detemir 5 UNITS BID 04/11 1115 AC 04/11 SC 1215 Loratadine 10 MG DAILY 04/10 1000 AC 04/10 PO 1601 Lorazepam 0.5 MG Q3P PRN 04/10 0215 AC PO 04/17 0214 Metoprolol Tartrate 25 MG BID 04/10 1000 AC 04/10 PO 2127 Morphine Sulfate 2 MG Q4 PRN 04/09 2245 AC 04/11 IV 0943 Nystatin 1 ATTILA BID 04/10 0207 AC 04/11 TOP 0950 Ondansetron HCl 4 MG Q6P PRN 04/10 1300 AC 04/11 IV 0854 Oxybutynin Chloride 10 MG DAILY 04/10 1000 AC 04/10 PO 1601 Ropinirole HCl 2 MG AT BEDTIME 04/10 2330 AC PO Sodium Chloride 1,000 ML Q13H 04/11 1115 AC 04/11 IV 1216 Tramadol HCl 50 MG Q4H PRN 04/10 0230 AC PO Trazodone HCl 100 MG AT BEDTIME 04/10 2200 AC 04/10 PO 2127 Results Pertinent Lab Results: Laboratory Tests 04/11 04/10 05 0715 1455 0800 Blood Gas pH (7.35 - 7.45 PH) 7.41 pCO2 (35 - 45 TORR) 34 L pO2 (80 - 100 TORR) 88 HCO3 (21 - 28 MEQ/L) 21 ABG O2 Sat (Measured) (>96.0 %) 95.0 L Carboxyhemoglobin (1.5 - 5.0 %) 1.0 L O2 Concentration % 6LPM O2 Delivery Method NC Chemistry Sodium (137 - 145 mmol/L) 134 L 136 L Potassium (3.5 - 5.1 mmol/L) 5.0 5.4 H Chloride (98 - 107 mmol/L) 101 100 Carbon Dioxide (22 - 30 mmol/L) 23 23 Anion Gap (5 - 16) 10 13 BUN (7 - 17 mg/dL) 25 H 28 H Creatinine (0.5 - 1.0 mg/dL) 1.6 H 1.9 H Estimated GFR (>60 ml/min) 31 L 26 L BUN/Creatinine Ratio (7 - 25 %) 15.6 14.7 Phosphorus (2.5 - 4.5 mg/dL) 5.2 H Magnesium (1.6 - 2.3 mg/dL) 1.6 Creatine Kinase (30 - 135 U/L) 104 Albumin (3.5 - 5.0 g/dL) 2.7 L TSH (0.270 - 4.200 uIU/mL) 4.870 H Free T4 (0.78 - 2.44 ng/dL) 1.64 Hematology CBC w Diff NO MAN DIFF REQ WBC (4.8 - 10.8 /CUMM) 9.3 RBC (4.20 - 5.40 /CUMM) 4.59 Hgb (12.0 - 16.0 G/DL) 13.2 Hct (37 - 47 %) 40.3 MCV (81.0 - 99.0 FL) 87.7 MCH (27.0 - 31.0 PG) 28.7 RDW (11.5 - 14.5 %) 13.9 Plt Count (130 - 400 /CUMM) 216 MPV (7.4 - 10.4 FL) 9.9 Gran % (42.2 - 75.2 %) 72.3 Lymphocytes % (20.5 - 51.1 %) 16.0 L Monocytes % (1.7 - 9.3 %) 10.2 H Eosinophils % (0 - 5 %) 1.1 Basophils % (0.0 - 2.0 %) 0.4 Absolute Granulocytes (1.4 - 6.5 /CUMM) 6.7 H Absolute Lymphocytes (1.2 - 3.4 /CUMM) 1.5 Absolute Monocytes (0.10 - 0.60 /CUMM) 0.9 H Absolute Eosinophils (0.0 - 0.7 /CUMM) 0.1 Absolute Basophils (0.0 - 0.2 /CUMM) 0 PUBS MCHC (33.0 - 37.0 G/DL) 32.7 L Miscellaneous Phlebotomy Draw Site RIGHT RADIAL 04/10 04/09 0735 1730 Chemistry Sodium (137 - 145 mmol/L) 137 134 L Potassium (3.5 - 5.1 mmol/L) 4.4 4.9 Chloride (98 - 107 mmol/L) 99 96 L Carbon Dioxide (22 - 30 mmol/L) 24 26 Anion Gap (5 - 16) 14 13 BUN (7 - 17 mg/dL) 26 H 19 H Creatinine (0.5 - 1.0 mg/dL) 1.7 H 1.3 H Estimated GFR (>60 ml/min) 29 L 40 L BUN/Creatinine Ratio (7 - 25 %) 15.3 14.6 Glucose (65 - 99 mg/dL) 91 Calcium (8.4 - 10.2 mg/dL) 9.1 Total Bilirubin (0.2 - 1.3 mg/dL) 1.0 AST (14 - 36 U/L) 28 ALT (9 - 52 U/L) 32 Alkaline Phosphatase (<127 U/L) 124 Troponin I (< 0.11 ng/ml) < 0.01 Total Protein (6.3 - 8.2 g/dL) 7.2 Albumin (3.5 - 5.0 g/dL) 3.6 Globulin (1.9 - 4.2 gm/dL) 3.6 Albumin/Globulin Ratio (1.1 - 2.2 %) 1.0 L Lipase (23 - 300 U/L) 83 Hematology CBC w Diff NO MAN DIFF REQ NO MAN DIFF REQ WBC (4.8 - 10.8 /CUMM) 14.9 H 13.4 H RBC (4.20 - 5.40 /CUMM) 5.17 5.86 H Hgb (12.0 - 16.0 G/DL) 15.0 16.8 H Hct (37 - 47 %) 45.2 51.4 H MCV (81.0 - 99.0 FL) 87.5 87.8 MCH (27.0 - 31.0 PG) 29.0 28.6 RDW (11.5 - 14.5 %) 13.6 13.8 Plt Count (130 - 400 /CUMM) 247 226 MPV (7.4 - 10.4 FL) 9.3 9.2 Gran % (42.2 - 75.2 %) 83.7 H 85.3 H Lymphocytes % (20.5 - 51.1 %) 9.2 L 7.6 L Monocytes % (1.7 - 9.3 %) 6.5 6.7 Eosinophils % (0 - 5 %) 0.2 0.2 Basophils % (0.0 - 2.0 %) 0.4 0.2 Absolute Granulocytes (1.4 - 6.5 /CUMM) 12.4 H 11.4 H Absolute Lymphocytes (1.2 - 3.4 /CUMM) 1.4 1.0 L Absolute Monocytes (0.10 - 0.60 /CUMM) 1.0 H 0.9 H Absolute Eosinophils (0.0 - 0.7 /CUMM) 0 0 Absolute Basophils (0.0 - 0.2 /CUMM) 0.1 0 PUBS MCHC (33.0 - 37.0 G/DL) 33.1 32.6 L 04/09 04/09 1708 1708 Urines Urine Color (YEL,AMB,STR) YEL Urine Clarity (CLEAR) CLDY H Urine pH (5.0 - 8.0) 7.0 Ur Specific [place] (1.001 - 1.035) 1.020 Urine Protein (NEG,<30 MG/DL) 100 H Urine Ketones (NEG) NEG Urine Nitrite (NEG) POS H Urine Bilirubin (NEG) NEG Urine Urobilinogen (0.1 - 1.0 EU/dl) 4.0 H Ur Leukocyte Esterase (NEG) LARGE H Ur Microscopic SEDIMENT EXAMINED Urine RBC (0 - 5 /HPF) >75 H Urine WBC (0 - 2 /HPF) > 75 H Ur Epithelial Cells (NONE,FEW) RARE Urine Bacteria (NEG/NONE) MANY H Urine Mucus (FEW,NONE) RARE Urine Hemoglobin (NEG) LARGE H Ur Random Creatinine (mg/dL) 64.4 Ur Random Sodium (30 - 90 mmol/L) 147 H Ur Random Potassium (mmol/L) 54.2 Fraction Sodium Excret (<1% %) 3.2 H Urine Glucose (N MG/DL) NEG Imaging/Other Studies: EXAM TYPE: US - US-RENAL/KIDNEY EXAMINATION: US RETROPERITONEAL COMPLETE (RENAL) CLINICAL INFORMATION: Elevated creatinine in spite of fluid resuscitation. Suspected obstructive uropathy.. COMPARISON: None TECHNIQUE: Real-time imaging of the kidneys and bladder. FINDINGS: RIGHT KIDNEY: 11.0 x 5.5 x 5.3 cm (SAG x AP x TRV). The kidney is normal in size, contour, and echogenicity. Renal cortical thickness is normal. No calculi or focal parenchymal lesions. No hydronephrosis. LEFT KIDNEY: 10.8 x 6.3 x 4.1 cm (SAG x AP x TRV). The kidney is normal in size, contour, and echogenicity. Renal cortical thickness is normal. No calculi or focal parenchymal lesions. No hydronephrosis. BLADDER: The bladder was empty at the time of the examination. There was a Quevedo's catheter in place. Bilateral ureteric jets are not visualized. IMPRESSION: Bilateral normal size kidneys, and no evidence of any hydronephrosis on either side. The urinary bladder was empty at the time of the examination, and accordingly not evaluated.
[2017-04-11 23:33] VITALS: BP 126/64
[2017-04-12 07:27] VITALS: BP 130/58
--- NOTE | 2017-04-12 09:14 | PN- Housestaff ---
PATITO CROWE,KIRBY 04/12/17 0914: Subjective Follow-up For: klebsiella UTI GIORGI Complaints: no complaints Subjective: Patient remains afebrile. Had good sleep last night. Hasn't ambulated yet, at home uses walker and wheelchair.C/o legweakness. Denies any cp/sob/n/v/d/ abd.pain. Claims her apetite improved but hasnt tried breakfast yet. Review of Systems Constitutional: Reports: see HPI. Objective Last 24 Hrs of Vital Signs/I&O Vital Signs Date Time Temp Pulse Resp B/P B/P Pulse O2 O2 Flow FiO2 Mean Ox Delivery Rate 04/12 0727 98.4 89 20 130/58 92 Room Air 04/11 2333 97.9 100 18 126/64 93 Room Air 04/11 2041 100 126/84 04/11 1851 94 Room Air 04/11 1600 Nasal 5.0L Cannula 04/11 1438 98.9 101 20 120/80 96 Intake & Output 04/12 1600 04/12 0800 04/12 0000 Intake Total 300 1200 Output Total 900 600 Balance -600 600 Intake, IV 250 600 Intake, Oral 50 600 Output, Urine 900 600 Physical Exam General Appearance: Alert, Oriented X3, Cooperative, No Acute Distress Skin: No Rashes Skin Temp/Moisture Exam: Warm/Dry HEENT: Atraumatic, PERRLA, EOMI, Mucous Membr. moist/pink Neck: Supple, No JVD Lymphatic: Cervical nl Cardiovascular: Normal S1, Normal S2, No Murmurs Lungs: Clear to Auscultation, Normal Air Movement Abdomen: Normal Bowel Sounds, Soft, No Tenderness Neurological: Normal Speech, Strength at 5/5 X4 Ext, Normal Tone, Sensation Intact, Cranial Nerves 3-12 NL Extremities: No Edema, Normal Pulses Vascular: Normal Pulses, Pulses Symmetrical Current Medications: Current Medications Sig/Tony Start time Last Medication Dose Route Stop Time Status Admin Acetaminophen 650 MG Q6P PRN 04/09 2245 AC PO Acetaminophen/ 1 TAB Q6P PRN 04/09 2245 AC 04/11 Hydrocodone Bitart PO 1517 Amitriptyline HCl 50 MG AT BEDTIME 04/10 2200 AC 04/11 PO 204 Atorvastatin Calcium 40 MG 1700 04/10 1700 AC 04/11 PO 170 Ceftriaxone Sodium 1,000 MG DAILY 04/10 1000 AC 04/12 IV 1000 Cholecalciferol 1,000 IU DAILY 04/10 1000 AC 04/12 PO 1000 Dextrose/Sodium 1,000 ML Q10H 04/10 1300 DC 04/11 Chloride [place] 0848 Duloxetine HCl 60 MG 1600 04/10 1600 AC 04/11 PO 1701 Fluticasone 2 SPRAY DAILY 04/11 1900 AC 04/12 Propionate TAMMY 1000 Folic Acid 1 MG DAILY 04/10 1000 AC 04/12 PO 1000 Heparin Sodium 5,000 UNIT Q8 04/10 0600 AC 04/12 (Porcine) SC 0601 Insulin Aspart 0 TIDAC 04/11 1200 AC 04/11 SC 1702 Insulin Aspart 0 Q4 04/10 1400 DC 04/11 SC 0954 Insulin Detemir 5 UNITS BID 04/11 1115 AC 04/12 SC 1000 Loratadine 10 MG DAILY 04/10 1000 AC 04/12 PO 1000 Lorazepam 0.5 MG Q3P PRN 04/10 0215 AC PO 04/17 0214 Metoprolol Tartrate 25 MG BID 04/10 1000 AC 04/12 PO 1000 Morphine Sulfate 2 MG Q4 PRN 04/09 2245 AC 04/11 IV 0943 Nystatin 1 ATTILA BID 04/10 0207 AC 04/12 TOP 1000 Ondansetron HCl 4 MG Q6P PRN 04/10 1300 AC 04/11 IV 0854 Oxybutynin Chloride 10 MG DAILY 04/10 1000 AC 04/12 PO 1000 Polyethylene Glycol 17 GM DAILY 04/12 1000 AC 04/12 PO 1000 Ropinirole HCl 2 MG AT BEDTIME 04/10 2330 AC 04/11 PO 2041 Senna/Docusate Sodium 1 TAB BID 04/12 1000 AC 04/12 PO 1000 Simethicone 80 MG Q6P PRN 04/11 2100 AC 04/12 PO 0607 Sodium Chloride 1,000 ML Q13H 04/11 1115 DC 04/11 IV 04/12 0014 1216 Tramadol HCl 50 MG Q4H PRN 04/10 0230 AC PO Trazodone HCl 100 MG AT BEDTIME 04/10 2200 AC 04/11 PO 2041 Last 24 Hrs of Lab/Price Results Last 24 Hrs of Labs/Mics: Laboratory Tests 04/12/17 0635: Anion Gap 9, Estimated GFR 40 L, BUN/Creatinine Ratio 15.4 Assessment/Plan Assessment: 77 y/o F with PMH of T2DM, stroke with right sided residual weakness, HTN, Bacterial Endocarditis, recurrent UTI, sent to the ED for increased confusion and poor PO intake. She was diagnosed with a UTI by her PCP 2 days ago, and was put on Bactrim. Current urine cultures are growing Klebsiella. In the ED, pertinent labs showed, WBC 13.4, H/H 16.8/51.4, Creatinine 1.3 (increased from baseline of 0.8). She is currently admitted to the General Medicine floor for further management. Problem List: * Klebsiella UTI * GIORGI likely 2/2 Dehydration * Fungal rash of groin * T2DM on Tresiba at home * Hyperlipidemia * Hypertension * Dementia Plan: * Continue monitoring on Gen Med * WBC normalized. Continue Ceftriaxone for now, as current organism is sensitive to it. * Creatinine is trending down. Renal USG shows no renal obstruction. Bladder could not be evaluated due to being empty * Continue IV hydration with D5/1/2 NS * Vitals are stable; Closely monitor vitals and I/Os * Continue Q4hr blood glucose checks and Novolog per Endo recs * Lower extremity doppler and V/Q scan REVEALED NO dvT OAND LOW POSSIBILITY OF PE * Continue Nystatin powder for fungal rash. * Endo and Nephro input appreciated * Continue Zofran for nausea * Continue other home medications for now * Daily BEP to monitor renal fxn. Avoid nephrotoxic meds. * DVT PPx: Heparin SubQ * Pain Pathway: Tylenol, Vicodin, Morphine * Code Status: DNR/DNI Problem List: 1. UTI (urinary tract infection) 2. Acute kidney injury Pain Ratin Pain Location: BACK Pain Goal: Pain 4 or less Pain Plan: TYLENOL Tomorrow's Labs & Rationales: BESINGH ZAVALA MD 04/12/17 1721: Attending MD Review Statement Attending Statement Attending MD Statement: examined this patient, discuss w/resident/PA/BROWN SOURER, agreed w/resident/PA/BROWN SOURER, discussed with family, reviewed EMR data (avail), discussed with nursing, amended to note Attending Assessment/Plan: The patient was seen and discussed with house staff. Agree with the plan of care as above. OK to discontinue fluids. Will need PT evaluation.
--- NOTE | 2017-04-12 10:15 | PN- Diabetes ---
Assessment/Plan Assessment: Patient states she feels better this morning. Her renal function is improving. Creatinine is down to 1.3. Her blood sugar is high this morning at 224 before breakfast. She is on sliding scale NovoLog starting with the sugar above 150. She is on Levemir 5 units twice a day. She is still eating poorly. The patient's thyroid function tests show a TSH of 4.87 with a free T4 1 0.64. This could either be sick euthyroid or subclinical hypothyroidism. Patient remains alert and awake but is still somewhat confused. Plan: Suggest increase the Levemir to 8 units twice a day. Continue the present sliding-scale NovoLog. The patient is still eating poorly. Suggest check the patient's vitamin B12 level and few of her dementia. Subjective Subjective: Feels okay Review of Systems Constitutional: Denies: chills, fever. Cardiovascular: Denies: chest pain. Respiratory: Denies: short of breath. Gastrointestinal: Denies: nausea, vomiting. Skin: Reports: no symptoms. Objective Last 24 Hrs of Vital Signs/I&O Vital Signs Date Time Temp Pulse Resp B/P B/P Pulse O2 O2 Flow FiO2 Mean Ox Delivery Rate 04/12 1000 89 130/58 04/12 0727 98.4 89 20 130/58 92 Room Air 04/11 2333 97.9 100 18 126/64 93 Room Air 04/11 2041 100 126/04/11 1851 94 Room Air 04/11 1600 Nasal 5.0L Cannula 04/11 1438 98.9 101 20 120/80 96 Intake & Output 04/12 1600 04/12 0800 04/12 0000 Intake Total 300 1200 Output Total 900 600 Balance -600 600 Intake, IV 250 600 Intake, Oral 50 600 Output, Urine 900 600 Vital Signs Date Time Temp Pulse Resp B/P B/P Pulse O2 O2 Flow FiO2 Mean Ox Delivery Rate 04/12 1000 89 130/58 04/12 0727 98.4 89 20 130/58 92 Room Air 04/11 2333 97.9 100 18 126/64 93 Room Air 04/11 2041 100 126/84 04/11 1851 94 Room Air 04/11 1600 Nasal 5.0L Cannula 04/11 1438 98.9 101 20 120/80 96 Intake & Output 04/12 1600 04/12 0800 04/12 0000 Intake Total 300 1200 Output Total 900 600 Balance -600 600 Intake, IV 250 600 Intake, Oral 50 600 Output, Urine 900 600 Physical Exam General Appearance: alert, awake, comfortable Head: normal appearance Neck: normal inspection Respiratory: normal breath sounds Abdomen: normal bowel sounds Extremities: normal inspection Current Medications: Current Medications Sig/Tony Start time Last Medication Dose Route Stop Time Status Admin Acetaminophen 650 MG Q6P PRN 04/09 2245 AC PO Acetaminophen/ 1 TAB Q6P PRN 04/09 2245 AC 04/11 Hydrocodone Bitart PO 1517 Amitriptyline HCl 50 MG AT BEDTIME 04/10 2200 AC 04/11 PO 2041 Atorvastatin Calcium 40 MG 1700 04/10 1700 AC 04/11 PO 1701 Ceftriaxone Sodium 1,000 MG DAILY 04/10 1000 AC 04/12 IV 1000 Cholecalciferol 1,000 IU DAILY 04/10 1000 AC 04/12 PO 1000 Dextrose/Sodium 1,000 ML Q10H 04/10 1300 DC 04/11 [place] 0848 Duloxetine HCl 60 MG 1600 04/10 1600 AC 04/11 PO 1701 Fluticasone 2 SPRAY DAILY 04/11 1900 AC 04/12 Propionate TAMMY 1000 Folic Acid 1 MG DAILY 04/10 1000 AC 04/12 PO 1000 Heparin Sodium 5,000 UNIT Q8 04/10 0600 AC 04/12 (Porcine) SC 0601 Insulin Aspart 0 TIDAC 04/11 1200 AC 04/11 SC 1702 Insulin Aspart 0 Q4 04/10 1400 DC 04/11 SC 0954 Insulin Detemir 5 UNITS BID 04/11 1115 AC 04/12 SC 1000 Loratadine 10 MG DAILY 04/10 1000 AC 04/12 PO 1000 Lorazepam 0.5 MG Q3P PRN 04/10 0215 AC PO 04/17 0214 Metoprolol Tartrate 25 MG BID 04/10 1000 AC 04/12 PO 1000 Morphine Sulfate 2 MG Q4 PRN 04/09 2245 AC 04/11 IV 0943 Nystatin 1 ATTILA BID 04/10 0207 AC 04/12 TOP 1000 Ondansetron HCl 4 MG Q6P PRN 04/10 1300 AC 04/11 IV 0854 Oxybutynin Chloride 10 MG DAILY 04/10 1000 AC 04/12 PO 1000 Polyethylene Glycol 17 GM DAILY 04/12 1000 AC 04/12 PO 1000 Ropinirole HCl 2 MG AT BEDTIME 04/10 2330 AC 04/11 PO 2041 Senna/Docusate Sodium 1 TAB BID 04/12 1000 AC 04/12 PO 1000 Simethicone 80 MG Q6P PRN 04/11 2100 AC 04/12 PO 0607 Sodium Chloride 1,000 ML Q13H 04/11 1115 DC 04/11 IV 04/12 0014 1216 Tramadol HCl 50 MG Q4H PRN 04/10 0230 AC PO Trazodone HCl 100 MG AT BEDTIME 04/10 2200 AC 04/11 PO 2040 Findings Pertinent Lab/Price Results: Laboratory Tests 04/12 0635 Chemistry Sodium (137 - 145 mmol/L) 138 Potassium (3.5 - 5.1 mmol/L) 4.5 Chloride (98 - 107 mmol/L) 104 Carbon Dioxide (22 - 30 mmol/L) 25 Anion Gap (5 - 16) 9 BUN (7 - 17 mg/dL) 20 H Creatinine (0.5 - 1.0 mg/dL) 1.3 H Estimated GFR (>60 ml/min) 40 L BUN/Creatinine Ratio (7 - 25 %) 15.4
[2017-04-12 14:19] VITALS: BP 118/68
[2017-04-12 22:21] VITALS: BP 118/58
[2017-04-13 06:48] VITALS: BP 122/60
--- NOTE | 2017-04-13 07:23 | PN- Housestaff ---
RUSLAN CROWE,NADYA 04/13/17 0723: Subjective Follow-up For: klebsiella UTI GIORGI Subjective: Patient is lying down comfortably in bed. Her daughter is by her side. I had a long conversation with both the patient and her daughter regarding eventual dispo planning. Per daughter, the patient will not go to [facility] and would prefer home visiting nurse facility. Review of Systems Constitutional: Reports: see HPI. Objective Last 24 Hrs of Vital Signs/I&O Vital Signs Date Time Temp Pulse Resp B/P B/P Pulse O2 O2 Flow FiO2 Mean Ox Delivery Rate 04/13 0648 98.8 78 20 122/60 93 Room Air 04/12 2221 98.5 74 20 118/58 94 04/12 2111 78 118/68 04/12 1419 98.2 77 20 118/68 98 04/12 1000 89 130/58 04/12 0800 Room Air Intake & Output 04/13 0800 04/13 0000 04/12 1600 Intake Total 360 720 240 Output Total 3930 254 8433 Balance -690 120 -760 Intake, Oral 360 720 240 Number 0 0 Bowel Movements Output, Urine [phone] Physical Exam General Appearance: Alert, Oriented X3, Cooperative, No Acute Distress, morbidly obese Cardiovascular: Regular Rate, Normal S1, Normal S2, No Murmurs Lungs: Clear to Auscultation, Normal Air Movement Abdomen: Normal Bowel Sounds, Soft, No Tenderness Neurological: Normal Speech, Strength at 5/5 X4 Ext, Normal Tone, Sensation Intact Extremities: No Edema Current Medications: Current Medications Sig/Tony Start time Last Medication Dose Route Stop Time Status Admin Acetaminophen 650 MG .STK-MED ONE 04/12 1635 DC PO 04/12 1636 Acetaminophen 650 MG Q6P PRN 04/09 2245 AC 04/12 PO 1635 Acetaminophen/ 1 TAB Q6P PRN 04/09 224 AC 04/11 Hydrocodone Bitart PO 1517 Amitriptyline HCl 50 MG AT BEDTIME 04/10 2200 AC 04/12 PO 211 Atorvastatin Calcium 40 MG 1700 04/10 1700 AC 04/12 PO 1635 Ceftriaxone Sodium 1,000 MG DAILY 04/10 1000 AC 04/12 IV 1000 Cholecalciferol 1,000 IU DAILY 04/10 1000 AC 04/12 PO 1000 Duloxetine HCl 60 MG 1600 04/10 1600 AC 04/12 PO 1635 Fluticasone 2 SPRAY DAILY 04/11 1900 AC 04/12 Propionate TAMMY 1000 Folic Acid 1 MG DAILY 04/10 1000 AC 04/12 PO 1000 Heparin Sodium 5,000 UNIT Q8 04/10 0600 AC 04/13 (Porcine) SC 0526 Insulin Aspart 0 TIDAC 04/11 1200 AC 04/12 SC 1754 Insulin Detemir 8 UNITS BID 04/12 2200 AC 04/12 SC 2113 Insulin Detemir 5 UNITS BID 04/11 1115 DC 04/12 SC 1000 Loratadine 10 MG DAILY 04/10 1000 AC 04/12 PO 1000 Lorazepam 0.5 MG Q3P PRN 04/10 0215 AC PO 04/17 0214 Metoprolol Tartrate 25 MG BID 04/10 1000 AC 04/12 PO 211 Morphine Sulfate 2 MG Q4 PRN 04/09 2245 AC 04/11 IV 0943 Nystatin 1 ATTILA BID 04/10 0207 AC 04/12 TOP 7 Ondansetron HCl 4 MG Q6P PRN 04/10 1300 AC 04/11 IV 0854 Oxybutynin Chloride 10 MG DAILY 04/10 1000 AC 04/12 PO 1000 Polyethylene Glycol 17 GM DAILY 04/12 1000 AC 04/12 PO 1000 Ropinirole HCl 2 MG AT BEDTIME 04/10 2330 AC 04/12 PO 2111 Senna/Docusate Sodium 1 TAB BID 04/12 1000 AC 04/12 PO 2111 Simethicone 80 MG Q6P PRN 04/11 2100 AC 04/12 PO 1318 Tramadol HCl 50 MG Q4H PRN 04/10 0230 AC PO Trazodone HCl 100 MG AT BEDTIME 04/10 2200 AC 04/12 PO 211 Last 24 Hrs of Lab/Price Results Last 24 Hrs of Labs/Mics: Laboratory Tests 04/13/17 0716: Sodium Pending, Potassium Pending, Chloride Pending, Carbon Dioxide Pending, Anion Gap Pending, BUN Pending, Creatinine Pending, BUN/Creatinine Ratio Pending Lines/Diet/Fluids Lines: peripheral lines Assessment/Plan Assessment: 77 y/o F with PMH of T2DM, stroke with right sided residual weakness, HTN, Bacterial Endocarditis, recurrent UTI, sent to the ED for increased confusion and poor PO intake. She was diagnosed with a UTI by her PCP 2 days ago, and was put on Bactrim. Current urine cultures are growing Klebsiella. In the ED, pertinent labs showed, WBC 13.4, H/H 16.8/51.4, Creatinine 1.3 (increased from baseline of 0.8). She is currently admitted to the General Medicine floor for further management. Problem List: * Klebsiella UTI * GIORGI likely 2/2 Dehydration * Fungal rash of groin * T2DM on Tresiba at home * Hyperlipidemia * Hypertension * Dementia Plan: * Continue monitoring on Gen Med * WBC normalized. Start Augmentin today and the patient can be discharged on the same to finish a course of 10 days. * Creatinine is trending down. Possible pre renal cause vs ATN. * Vitals are stable; Closely monitor vitals and I/Os * Continue Q4hr blood glucose checks and Novolog per Endo recs. Currently on 8 units levemir BID and Novolog sliding scale with good glucose control. * Continue Nystatin powder for fungal rash. * Endo and Nephro input appreciated * Continue Zofran for nausea * Continue other home medications for now * Daily BEP to monitor renal fxn. Avoid nephrotoxic meds. * DVT PPx: Heparin SubQ * Pain Pathway: Tylenol, Vicodin, Morphine * Code Status: DNR/DNI Problem List: 1. UTI (urinary tract infection) 2. Acute kidney injury Pain Ratin Pain Location: None Pain Goal: Pain 4 or less Pain Plan: Per EMR Tomorrow's Labs & Rationales: BEP for kidney functions. DVT/Prophylaxis: pharmacological AMISH CROWE,BONI 04/13/17 1215: Attending MD Review Statement Attending Statement Attending MD Statement: examined this patient, discuss w/resident/PA/FUGITIVE DETECTIVE, agreed w/resident/PA/FUGITIVE DETECTIVE, reviewed EMR data (avail), discussed with nursing, discussed with case mgmt, reviewed images Attending Assessment/Plan: 77-year-old female with diabetes, morbid obesity, previous stroke with right- sided weakness who is here with acute kidney injury, Klebsiella UTI and was brought in in a disheveled and unkempt state. Also had a high O2 requirement with a negative VQ scan. At this point I think we can safely switch her to by mouth antibiotics for the Klebsiella UTI. Her creatinine is slowly coming down to what appears to be her baseline. We are awaiting a PT evaluation and likely they're going to recommend rehabilitation. Patient and patient's daughter are very adamant about not going to rehabilitation. They feel that she has enough support system at home with family members with her and write upstairs. We explained at length that this would be a very unsafe discharge plan and if she is going to pursue this it would have to be an AMA. In the meantime we are going to medically optimize her, try and set her up with visiting nurse service should she choose to pursue the AMA route.
--- NOTE | 2017-04-13 07:54 | PN- Diabetes ---
Assessment/Plan Assessment: Patient states she feels better this morning. Her renal function is improving. Creatinine was down to 1.3 yesterday. Today's labs are pending. Her blood sugar this morning is 91 before breakfast. She is on sliding scale NovoLog starting with the sugar above 150. She is on Levemir 8 units twice a day. Apparently she had a little better yesterday. The patient's thyroid function tests show a TSH of 4.87 with a free T4 1 0.64. This could either be sick euthyroid or subclinical hypothyroidism. Patient remains alert and awake but is still somewhat confused. Plan: Suggest reduce Levemir to 6 units twice a day. Continue present sliding-scale NovoLog . Continue to try to improve nutrition. Subjective Subjective: Feels okay Review of Systems Constitutional: Denies: chills, fever. Cardiovascular: Denies: chest pain. Respiratory: Denies: short of breath. Skin: Reports: no symptoms. Objective Last 24 Hrs of Vital Signs/I&O Vital Signs Date Time Temp Pulse Resp B/P B/P Pulse O2 O2 Flow FiO2 Mean Ox Delivery Rate 04/13 0648 98.8 78 20 122/60 93 Room Air 04/12 2221 98.5 74 20 118/58 94 04/12 2111 78 118/04/12 1419 98.2 77 20 118/68 98 04/12 1000 89 130/58 04/12 0800 Room Air Intake & Output 04/13 0800 04/13 0000 04/12 1600 Intake Total 360 720 240 Output Total 7007 682 0310 Balance -690 120 -760 Intake, Oral 360 720 240 Number 0 0 Bowel Movements Output, Urine [phone] Vital Signs Date Time Temp Pulse Resp B/P B/P Pulse O2 O2 Flow FiO2 Mean Ox Delivery Rate 04/13 0648 98.8 78 20 122/60 93 Room Air 04/12 2221 98.5 74 20 118/58 94 04/12 2111 78 118/68 04/12 1419 98.2 77 20 118/68 98 04/12 1000 89 130/58 04/12 0800 Room Air Intake & Output 04/13 0800 04/13 0000 04/12 1600 Intake Total 360 720 240 Output Total 5624 084 7504 Balance -690 120 -760 Intake, Oral 360 720 240 Number 0 0 Bowel Movements Output, Urine [phone] Physical Exam General Appearance: alert, awake, obese Head: normal appearance Neck: normal inspection Respiratory: normal breath sounds Cardiovascular: regular rate/rhythm Abdomen: normal bowel sounds Current Medications: Current Medications Sig/Tony Start time Last Medication Dose Route Stop Time Status Admin Acetaminophen 650 MG .STK-MED ONE 04/12 1635 DC PO 04/12 1636 Acetaminophen 650 MG Q6P PRN 04/09 2245 AC 04/12 PO 1635 Acetaminophen/ 1 TAB Q6P PRN 04/09 2245 AC 04/11 Hydrocodone Bitart PO 1517 Amitriptyline HCl 50 MG AT BEDTIME 04/10 2200 AC 04/12 PO 2112 Atorvastatin Calcium 40 MG 1700 04/10 1700 AC 04/12 PO 1635 Ceftriaxone Sodium 1,000 MG DAILY 04/10 1000 AC 04/12 IV 1000 Cholecalciferol 1,000 IU DAILY 04/10 1000 AC 04/12 PO 1000 Duloxetine HCl 60 MG 1600 04/10 1600 AC 04/12 PO 1635 Fluticasone 2 SPRAY DAILY 04/11 1900 AC 04/12 Propionate TAMMY 1000 Folic Acid 1 MG DAILY 04/10 1000 AC 04/12 PO 1000 Heparin Sodium 5,000 UNIT Q8 04/10 0600 AC 04/13 (Porcine) SC 0526 Insulin Aspart 0 TIDAC 04/11 1200 AC 04/12 SC 1754 Insulin Detemir 8 UNITS BID 04/12 2200 AC 04/12 SC 2113 Insulin Detemir 5 UNITS BID 04/11 1115 DC 04/12 SC 1000 Loratadine 10 MG DAILY 04/10 1000 AC 04/12 PO 1000 Lorazepam 0.5 MG Q3P PRN 04/10 0215 AC PO 04/17 0214 Metoprolol Tartrate 25 MG BID 04/10 1000 AC 04/12 PO 2111 Morphine Sulfate 2 MG Q4 PRN 04/09 2245 AC 04/11 IV 0943 Nystatin 1 ATTILA BID 04/10 0207 AC 04/12 TOP 211 Ondansetron HCl 4 MG Q6P PRN 04/10 1300 AC 04/11 IV 0854 Oxybutynin Chloride 10 MG DAILY 04/10 1000 AC 04/12 PO 1000 Polyethylene Glycol 17 GM DAILY 04/12 1000 AC 04/12 PO 1000 Ropinirole HCl 2 MG AT BEDTIME 04/10 2330 AC 04/12 PO 2111 Senna/Docusate Sodium 1 TAB BID 04/12 1000 AC 04/12 PO 211 Simethicone 80 MG Q6P PRN 04/11 2100 AC 04/12 PO 1318 Tramadol HCl 50 MG Q4H PRN 04/10 0230 AC PO Trazodone HCl 100 MG AT BEDTIME 04/10 2200 AC 04/12 PO 2110 Findings Pertinent Lab/Price Results: Laboratory Tests 04/13 0716 Chemistry Sodium Pending Potassium Pending Chloride Pending Carbon Dioxide Pending Anion Gap Pending BUN Pending Creatinine Pending BUN/Creatinine Ratio Pending
--- NOTE | 2017-04-13 13:12 | Discharge Summary ---
Visit Information Visit Dates Admission Date: 04/09/17 Discharge Date: 04/14/2017 Hospital Course Course Attending Physician: DILIP STODDARD MD Primary Care Physician: SUBHASH CROWE,HERRERA Tabor Consulting Request: 1 Consulting Specialty: Nephrology Consulting Physician: Dr. King Consulting Request: 2 Consulting Specialty: Endocrinology Consulting Physician: Dr. Feldman Hospital Course: 77-year-old female, was admitted for " not acting herself" and poor oral intake. 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 She was seen by her PCP for mild dysuria and increased frequency of urination. Patient thought that she had a vaginal yeast infection and treated herself with OTC Monistat without any relief of symptoms. In the emergency room patient was complaining of mild dysuria and mild hypogastric abdominal pain. Vital signs were stable (97/90/12/148/70/95% in room air). Physical exam revealed morbidly obese woman not in acute distress. Slight hypogastric abdominal tenderness no guarding no rebound. The remainder of the physical exam was unremarkable. WBC 13.4 with left shift and bandemia, BUN 19, creatinine 1.3, UA positive nitrates WBC more than 75. Patient is complete blood count lives with her daughters and completely dependent on them for all his personal care. She was admitted to the General Medicine floor with the folllowing problems: 1) Urinary Tract Infection with Klebsiella: Patient was started on Ceftriaxone. Quevedo was placed, as the patient was having a vaginal rash. She was continued on Ceftriaxone for 5 days and then changed to Augmentin to complete a course of 10 days. 2) GIORGI 2/2 Pre renal azotemia vs ATN: Creatinine was elevated to 1.3 at the time of admission. This was thought to be secondary to dehydration and the patient was started on fluids. As her creatinine continued to worsen, nephrology consult was placed. Her rising creatinine was thought to be secondary to Pre-renal Azotemia vs ATN. She was continued on fluids with improvement of her creatinine. 3) Insulin Dependent DM: She was hypoglycemic during the hospitalization and all insulin was held. Considering her increased requirement of insulin at home (Tresiba 220U), Endo consult was placed for further management. The patient was restarted on Levemir and Novolog which was titrated depending upon her blood sugar levels. She is being discharged on 6 units of Levemir BID and a Novolog sliding scale. 4) Other home medications: She was contiued on her other home medications except Vesicare and hydroxyzine. She will have to follow up with her PCP regarding possible polypharmacy. 5) DVT PPx: Pharmacological 6) Code Status: DNR/DNI Patient left AMA. PT recommended rehab, but the patient was not amenable to the same. Allergies: Coded Allergies: Opioids - Morphine Analogues (UNKNOWN REACTION TO "PAIN PILLS" 04/09/17) Pertinent Lab Results: Vital Signs Date Time Temp Pulse Resp B/P B/P Pulse O2 O2 Flow FiO2 Mean Ox Delivery Rate 04/14 0908 88 140/70 04/14 0634 98.4 80 20 144/60 96 Room Air 04/13 2232 98.6 84 20 140/60 94 Room Air 04/13 2142 84 140/60 04/13 1528 98.0 71 22 118/60 93 04/13 1015 78 122/60 04/13 0800 Room Air 04/13 0648 98.8 78 20 122/60 93 Room Air 04/12 2221 98.5 74 20 118/58 94 04/12 2111 78 118/68 04/12 1419 98.2 77 20 118/68 98 /14 1000 89 130/58 / 0800 Room Air 04/12 0727 98.4 89 20 130/58 92 Room Air 04/11 2333 97.9 100 18 126/64 93 Room Air 04/11 2041 100 126/84 04/11 1851 94 Room Air 04/11 1600 Nasal 5.0L Cannula 04/11 1438 98.9 101 20 120/80 96 04/11 0800 99 Nasal 6.0L Cannula 04/11 0751 98.7 95 20 120/60 99 Nasal 6.0L Cannula 04/11 0000 96 Nasal 6.0L Cannula 04/10 2159 99.0 100 18 120/80 96 Nasal 6.0L Cannula 04/10 2127 100 120/80 05/12 1600 92 Nasal 6.0L Cannula 04/10 1529 97.8 115 22 120/68 94 05/ 1202 Nasal 6.0L Cannula 04/10 0800 92 Nasal 6.0L Cannula 04/10 0630 97.9 104 18 120/62 92 Nasal Cannula 04/10 0624 95 Nasal 6.0L Cannula 04/10 0003 95 Nasal 4.0L Cannula 04/09 2357 97.1 73 18 118/64 95 Room Air 04/09 2125 96.9 04/09 2124 96.9 85 16 94 Nasal 4.0L Cannula 04/09 1910 97.6 86 16 125/64 94 Room Air 04/09 1802 93 Nasal 4.0L Cannula 04/09 1703 97.0 90 12 148/70 95 Nasal 4.0L Cannula Laboratory Tests 04/14/17 0735: Anion Gap 12, Estimated GFR 36 L, BUN/Creatinine Ratio 11.4, Triglycerides 281 H, Cholesterol 111, LDL Cholesterol, Calc 32 L, HDL Cholesterol 23 L, Cholesterol/HDL Ratio 5 H Microbiology Date/Time Procedure - Status Source Growth 04/09 2330 Urine Culture - COMP URINE ROUT KLEBSIELLA PNEUMONIAE Orders Procedure Date/time Status LIPID PANEL 04/14 0600 Complete BASIC ELECTROLYTES PLUS BUN&CR 04/14 0600 Complete Discharge Patient 04/14 UNK Active BASIC ELECTROLYTES PLUS BUN&CR 04/13 0600 Complete OXYGEN 04/13 UNK Complete OXYGEN DAILY CHARGE 04/13 UNK Complete PT Evaluate & Treat 04/13 UNK Active PT EVAL LOW COMPLEX 20 MIN 04/13 UNK Complete Quevedo, Insertion/Removal/Asses 04/12 0800 Complete VITAMIN B12 04/12 0635 Complete OXYGEN 04/12 UNK Complete OXYGEN DAILY CHARGE 04/12 UNK Complete Lab Add-on Test 04/12 UNK Active Quevedo, Insertion/Removal/Asses 04/11 1714 Complete OXYGEN 04/11 UNK Complete OXYGEN DAILY CHARGE 04/11 UNK Complete OXYGEN SETUP CHG 04/10 UNK Complete OXYGEN 04/10 UNK Complete OXYGEN TRANSPORT 04/10 UNK Complete Vital Signs Date Time Temp Pulse Resp B/P B/P Pulse O2 O2 Flow FiO2 Mean Ox Delivery Rate 04/13 1015 78 122/60 04/13 0800 Room Air 04/13 0648 98.8 78 20 122/60 93 Room Air 04/12 2221 98.5 74 20 118/58 94 04/12 2111 78 118/68 04/12 1419 98.2 77 20 118/68 98 04/12 1000 89 130/58 04/12 0800 Room Air 04/12 0727 98.4 89 20 130/58 92 Room Air 04/11 2333 97.9 100 18 126/64 93 Room Air 04/11 2041 100 126/84 04/11 1851 94 Room Air 04/11 1600 Nasal 5.0L Cannula 04/11 1438 98.9 101 20 120/80 96 04/11 0800 99 Nasal 6.0L Cannula 04/11 0751 98.7 95 20 120/60 99 Nasal 6.0L Cannula 04/11 0000 96 Nasal 6.0L Cannula 04/10 2159 99.0 100 18 120/80 96 Nasal 6.0L Cannula 04/10 2127 100 120/80 04/10 1600 92 Nasal 6.0L Cannula 04/10 1529 97.8 115 22 120/68 94 04/10 1202 Nasal 6.0L Cannula 04/10 0800 92 Nasal 6.0L Cannula 04/10 0630 97.9 104 18 120/62 92 Nasal Cannula 04/10 0624 95 Nasal 6.0L Cannula 04/10 0003 95 Nasal 4.0L Cannula 04/09 2357 97.1 73 18 118/64 95 Room Air 04/09 2125 96.9 04/09 2124 96.9 85 16 94 Nasal 4.0L Cannula 04/09 1910 97.6 86 16 125/64 94 Room Air 04/09 1802 93 Nasal 4.0L Cannula 04/09 1703 97.0 90 12 148/70 95 Nasal 4.0L Cannula Laboratory Tests 04/13/17 0716: Anion Gap 12, Estimated GFR 40 L, BUN/Creatinine Ratio 12.3 Microbiology Date/Time Procedure - Status Source Growth 04/09 2330 Urine Culture - COMP URINE ROUT KLEBSIELLA PNEUMONIAE Orders Procedure Date/time Status LIPID PANEL 04/14 0600 Active BASIC ELECTROLYTES PLUS BUN&CR 04/14 0600 Active BASIC ELECTROLYTES PLUS BUN&CR 04/13 0600 Complete PT Evaluate & Treat 04/13 UNK Active Quevedo, Insertion/Removal/Asses 04/12 0800 Complete VITAMIN B12 04/12 0635 Complete BASIC ELECTROLYTES PLUS BUN&CR 04/12 0600 Complete OXYGEN 04/12 UNK Complete OXYGEN DAILY CHARGE 04/12 UNK Complete Lab Add-on Test 04/12 UNK Active Quevedo, Insertion/Removal/Asses 04/11 1714 Complete THYROID STIMULATING HORMONE 04/11 0715 Complete FREE T4 04/11 0715 Complete OXYGEN 04/11 UNK Complete OXYGEN DAILY CHARGE 04/11 UNK Complete Lab Add-on Test 04/11 UNK Active Quevedo, Insertion/Removal/Asses 04/10 2050 Complete PHOSPHORUS 04/10 1455 Complete MAGNESIUM 04/10 1455 Complete CREATINE PHOSPHOKINASE 04/10 1455 Complete ALBUMIN 04/10 1455 Complete OXYGEN SETUP CHG 04/10 UNK Complete OXYGEN 04/10 UNK Complete OXYGEN TRANSPORT 04/10 UNK Complete Lab Add-on Test 04/10 UNK Active Disposition Summary Disposition Principal Diagnosis: UTI growing Klebsiella GIORGI 2/2/ Pre renal Azotemia vs ATN Additional Diagnosis: IDDM HTN Remote CVA with residula right sided weakness Mild Dementia ARTIE Discharge Disposition: left against medical adv Discharge Instructions General Discharge Information Code Status: Do Not Resucitate/Intubat Patient's Diet: Diabetic Heart Healthy Patient's Activity: As tolerated Follow-Up Instructions/Appts: Please make an appointment to see your: 1) PCP within one week from discharge 2) Document Restorer within one week from discharge 3) Director Consumer Affairs within one week from discharge. Medications at Discharge Discharge Medications: Stop taking the following medications: Ondansetron (Ondansetron HCl 4 MG/2 Ml Vial) 4 MG/2 ML VIAL INTRAVEN EVERY SIX HOURS NEEDED as needed for NAUSEA/VOMITING Qty = 1 Pregabalin (Lyrica) 75 MG CAPSULE ORAL TWICE DAILY Qty = 60 Hydroxyzine Pamoate (Vistaril) 25 MG CAP ORAL TWICE DAILY Qty = 20 Insulin Degludec (Tresiba Flextouch U-100) 100 UNIT/ML (3 ML) INSULN.PEN Inject into fatty tissue AM Insulin Degludec (Tresiba Flextouch U-100) 100 UNIT/ML (3 ML) INSULN.PEN Inject into fatty tissue BEDTIME Pantoprazole Sodium (Protonix) 40 MG TABLET.DR ORAL TWICE DAILY Amoxicillin (Amoxil) 500 MG CAP ORAL TWICE DAILY Qty = 20 Continue taking these medications: Nystatin (Nyamyc) 100,000 UNIT/GRAM POWDER 1 Powder On the skin as needed for RASH Qty = 60 ROPINIROLE HCL (Ropinirole Hydrochloride) 2 MG TABLET 1 Tablet ORAL AT BEDTIME Qty = 30 TRAZODONE HCL (Trazodone HCl) 100 MG TABLET 1 Tablet ORAL AT BEDTIME Qty = 30 Metoprolol Tartrate (Lopressor) 25 MG TABLET 1 Tablet ORAL TWICE DAILY Qty = 60 Rosuvastatin Calcium (Crestor) 20 MG TABLET 1 Tablet ORAL DAILY Qty = 30 DULOXETINE HCL (Duloxetine) 30 MG CAPSULE.DR 1 Tablet ORAL DAILY Qty = 90 Solifenacin Succinate (Vesicare) 10 MG TABLET 1 Tablet ORAL DAILY Qty = 30 Tramadol HCl (Tramadol HCl) 50 MG TABLET 1 Tablet ORAL EVERY SIX HOURS NEEDED as needed for PAIN AMITRIPTYLINE HCL (Amitriptyline HCl) 50 MG TABLET 1 Tablet ORAL AT BEDTIME Qty = 30 Donepezil Hydrochloride (Donepezil Hydrochloride) 10 MG TAB 1 Tablet ORAL DAILY Qty = 90 Cholecalciferol (Vitamin D3) 1,000 UNIT TABLET 1 Tablet ORAL DAILY Folic Acid (Folic Acid) 1 MG TABLET 1 Tablet ORAL DAILY Loratadine (Claritin) 10 MG TAB 1 Tablet ORAL DAILY Lorazepam (Ativan) 0.5 MG TAB 1 Tablet ORAL Q8H as needed for ANXIETY Pyridoxine (Vitamin B6) 25 MG TAB 1 Tablet ORAL DAILY VIT B COMP/C/FA/IRON/VIT E (Vitamin B Complex Tablet) 500-400-18 TABLET 1 Tablet ORAL DAILY Start taking the following new medications: Augmentin (Augmentin 500-125 Tablet) 500 MG-125 MG TABLET 500 Milligram ORAL EVERY 12 HOURS Days = 6 No Refills Insulin Detemir (Levemir) 100 UNIT/ML VIAL 6 Units Inject into fatty tissue TWICE DAILY Days = 60 No Refills Insulin Aspart, Recombinant (Novolog Flexpen) 100 UNIT/ML INSULN.PEN 0 Inject into fatty tissue 3 TIMES DAILY BEFORE MEALS Days = 60 No Refills Instructions: 80-150 3 units 151-200 4 units 201-250 5 units 251-300 6 units 301-350 7 units 351-400 8 units >400 call MD Copies To: SUBHASH CROWE,HERRERA Tabor; ADRIANA CROWE,SHARMAINE Nassar; SRUTHI CROWE,RONDA Talbot
[2017-04-13 15:28] VITALS: BP 118/60
[2017-04-13] MEDS ORDERED: AUGMENTIN 500-1 EACH PO (15:39)
--- NOTE | 2017-04-13 16:05 | NUR ---
wound care: requested to eval pt for skin alterations present on admission - pt initially resistant to being assessed by this production underwriter stating "i dont have anything there, and if i did i would take care of it on my own" - agreed to have skin evaluated upon assessment, pt noted with (3) 0.4 x 0.3 cm satelite lesions to right buttocks intact pink skin slightly indurated - non drng - pt refusing further intervention recommendation: monitor qs and prn and cont to educate pt re: skin care
[2017-04-13 22:32] VITALS: BP 140/60
--- NOTE | 2017-04-14 04:07 | NUR ---
PT HATFIELD REMOVED 04/13/17 @ 2029, GROSSLY INCONTINENT BY 04/14/17 @ 0200.
[2017-04-14 06:34] VITALS: BP 144/60
--- NOTE | 2017-04-14 07:10 | PN- Housestaff ---
RUSLAN CROWE,NADYA 04/14/17 0710: Subjective Follow-up For: klebsiella UTI GIORGI Review of Systems Constitutional: Reports: see HPI. Objective Last 24 Hrs of Vital Signs/I&O Vital Signs Date Time Temp Pulse Resp B/P B/P Pulse O2 O2 Flow FiO2 Mean Ox Delivery Rate 04/14 0634 98.4 80 20 144/60 96 Room Air 04/13 2232 98.6 84 20 140/60 94 Room Air 04/13 2142 84 140/60 04/13 1528 98.0 71 22 118/60 93 04/13 1015 78 122/60 04/13 0800 Room Air Intake & Output 04/14 0800 04/14 0000 04/13 1600 Intake Total 250 600 Output Total 350 1000 Balance -100 -400 Intake, IV 10 Intake, Oral 240 600 Number 0 0 Bowel Movements Output, Urine 350 1000 Physical Exam General Appearance: Alert, Oriented X3, Cooperative Cardiovascular: Regular Rate, Normal S1, Normal S2, No Murmurs Lungs: Clear to Auscultation, Normal Air Movement Abdomen: Normal Bowel Sounds, Soft, No Tenderness Neurological: Normal Speech, Strength at 5/5 X4 Ext, Normal Tone, Sensation Intact Extremities: No Edema Current Medications: Current Medications Sig/Tony Start time Last Medication Dose Route Stop Time Status Admin Acetaminophen 650 MG Q6P PRN 04/09 2245 AC 04/12 PO 1635 Acetaminophen/ 1 TAB Q6P PRN 04/09 2245 AC 04/14 Hydrocodone Bitart PO 0241 Amitriptyline HCl 50 MG AT BEDTIME 04/10 2200 AC 04/13 PO 2142 Amoxicillin/ 500 MG Q12 04/13 2200 AC 04/13 Clavulanate Potassium PO 2142 Atorvastatin Calcium 40 MG 1700 / 1700 AC 04/13 PO 1554 Ceftriaxone Sodium 1,000 MG DAILY 04/10 1000 DC 04/13 IV 1012 Cholecalciferol 1,000 IU DAILY 04/10 1000 AC 04/13 PO 1012 Duloxetine HCl 60 MG 1600 / 1600 AC 04/13 PO 1554 Fluticasone 2 SPRAY DAILY 04/11 1900 AC 04/13 Propionate TAMMY 1012 Folic Acid 1 MG DAILY / 1000 AC 04/13 PO 1015 Heparin Sodium 5,000 UNIT Q8 04/10 0600 AC 04/14 (Porcine) SC 0610 Insulin Aspart 0 TIDAC 04/11 1200 AC 04/13 SC 1810 Insulin Detemir 6 UNITS BID 04/13 2200 AC 04/13 SC 2148 Insulin Detemir 8 UNITS BID 04/12 2200 DC 04/13 SC 1014 Loratadine 10 MG DAILY 04/10 1000 AC 04/13 PO 1012 Lorazepam 0.5 MG Q3P PRN 04/10 0215 AC PO 04/17 0214 Metoprolol Tartrate 25 MG BID 04/10 1000 AC 04/13 PO 2142 Morphine Sulfate 2 MG Q4 PRN 04/09 2245 AC 04/11 IV 0943 Nystatin 1 ATTILA BID 04/10 0207 AC 04/13 TOP 2149 Ondansetron HCl 4 MG Q6P PRN 04/10 1300 AC 04/11 IV 0854 Oxybutynin Chloride 10 MG DAILY 04/10 1000 AC 04/13 PO 1012 Patient Medication 1 ED .STK-MED ONE 04/13 1354 DC Teaching ED 04/13 1355 Polyethylene Glycol 17 GM DAILY 04/12 1000 AC 04/13 PO 1015 Ropinirole HCl 2 MG AT BEDTIME 04/10 2330 AC 04/13 PO 2141 Senna/Docusate Sodium 1 TAB BID 04/12 1000 AC 04/13 PO 2142 Simethicone 80 MG Q6P PRN 04/11 2100 AC 04/13 PO 1012 Tramadol HCl 50 MG Q4H PRN 04/10 0230 AC PO Trazodone HCl 100 MG AT BEDTIME 04/10 2200 AC 04/13 PO 2142 Lines/Diet/Fluids Lines: peripheral lines Assessment/Plan Assessment: 77 y/o F with PMH of T2DM, stroke with right sided residual weakness, HTN, Bacterial Endocarditis, recurrent UTI, sent to the ED for increased confusion and poor PO intake. She was diagnosed with a UTI by her PCP 2 days ago, and was put on Bactrim. Current urine cultures are growing Klebsiella. In the ED, pertinent labs showed, WBC 13.4, H/H 16.8/51.4, Creatinine 1.3 (increased from baseline of 0.8). She is currently admitted to the General Medicine floor for further management. Problem List: * Klebsiella UTI * GIORGI likely 2/2 Dehydration * Fungal rash of groin * T2DM on Tresiba at home * Hyperlipidemia * Hypertension * Dementia Plan: * Continue monitoring on Gen Med * WBC normalized. Continue Augmentin today and the patient can be discharged on the same to finish a course of 10 days. * Creatinine is trending down. Possible pre renal cause vs ATN. * Vitals are stable; Closely monitor vitals and I/Os * Continue Q4hr blood glucose checks and Novolog per Endo recs. Currently on 6 units levemir BID and Novolog sliding scale with good glucose control. * Continue Nystatin powder for fungal rash. * PT has recommended STR, but the patient is not amenable to it and would like to go back home with visiting nurses. * Endo and Nephro input appreciated * Continue Zofran for nausea * Continue other home medications for now * Daily BEP to monitor renal fxn. Avoid nephrotoxic meds. * DVT PPx: Heparin SubQ * Pain Pathway: Tylenol, Vicodin, Morphine * Code Status: DNR/DNI Problem List: 1. UTI (urinary tract infection) 2. Acute kidney injury Pain Ratin Pain Location: None Pain Goal: Pain 4 or less Pain Plan: Per EMR Tomorrow's Labs & Rationales: BEP to monitor creatinine DVT/Prophylaxis: pharmacological Consulting Request: Consulting Specialty: Endocrinology Consulting Physician: Dr. Gaston STODDARD MD,[facility] 04/14/17 1256: Attending MD Review Statement Attending Statement Attending MD Statement: examined this patient, discuss w/resident/PA/COMPLIANCE QUALITY PERFORMANCE ANALYST, agreed w/resident/PA/COMPLIANCE QUALITY PERFORMANCE ANALYST, reviewed EMR data (avail) Attending Assessment/Plan: Patient is back to her baseline mentally. She is still weak. Creatinine is back to normal. We recommend short term rehab for patient, but patient and family are both refusing and feel that she would be better cared for at home. Patient wishes to sign out against medical advice and go home. Seen by case management and home nursing services and home physical therapy will be coordinated for the patient. Will continue current management. Agree with resident assessment and plan.
--- NOTE | 2017-04-14 07:32 | Patient Discharge Instructions ---
Discharge Instructions General Discharge Information You were seen/treated for: UTI with Klebsiella GIORGI Special Instructions: Please make an appointment to see: 1) Your PCP Within one week from discharge 2) Your Manager Transplant within one week from discharge. 3) Your assistant fitness manager within one week from discharge. Diet Recommended Diet: Diabetic, Heart Healthy Activity Activity Self Limited: Yes Acute Coronary Syndrome Inclusion Criteria At DC or during hospital stay patient has or had the following: ACS DIAGNOSIS No Discharge Core Measures Meds if any: Prescribed or Continued at Discharge Meds if any: NOT Prescribed or Continued at Discharge Congestive Heart Failure Inclusion Criteria At DC or during hospital stay patient has or had the following: CHF DIAGNOSIS No Discharge Core Measures Meds if any: Prescribed or Continued at Discharge Meds if any: NOT Prescribed or Continued at Discharge Cerebrovascular accident Inclusion Criteria At DC or during hospital stay patient has or had the following: CVA/TIA Diagnosis No Discharge Core Measures Meds if any: Prescribed or Continued at Discharge Meds if any: NOT Prescribed or Continued at Discharge Venous thromboembolism Inclusion Criteria VTE Diagnosis No VTE Type NONE VTE Confirmed by (Test) NONE Discharge Core Measures - Per Current guidelines, there needs to be overlap - treatment for the first 5 days of Warfarin therapy. - If discharged on Warfarin prior to 5 days of - overlap therapy, the patient will need to be - assessed for post discharge needs including - *Post discharge parental anticoagulation - *Warfarin and/or parental anticoagulation education - *Follow up date to check INR post discharge At least 5 days overlap therapy as Inpatient No Meds if any: Prescribed or Continued at Discharge Note: Overlap Therapy is Warfarin and Anticoagulant Meds if any: NOT Prescribed or Continued at Discharge
--- NOTE | 2017-04-14 08:08 | PN- Diabetes ---
Assessment/Plan Assessment: Patient states she feels better this morning. Her renal function is improving. Creatinine is leveled off at 1.3. Her blood sugar this morning is 191 before breakfast. She is on sliding scale NovoLog starting with the sugar above 150. She is on Levemir 6 units twice a day. Apparently she had a little better yesterday. The patient's thyroid function tests show a TSH of 4.87 with a free T4 1 0.64. This could either be sick euthyroid or subclinical hypothyroidism. Patient remains alert and awake but is still somewhat confused. Plan: Suggest continue Levemir 6 units twice a day. Increase sliding-scale NovoLog before meals to 80-150 give 3 units NovoLog, 151-200 give 4 units NovoLog, 201- 250 give 5 units NovoLog, 251-300 give 6 units NovoLog, 301-350 give 7 units NovoLog, 351-400 give 8 units NovoLog. This patient is discharged today she can go home on the above insulin regimen. Further adjustments when she is home may be necessary because her diet will be different. Subjective Subjective: Feels okay Review of Systems Constitutional: Denies: chills, fever. Cardiovascular: Denies: chest pain. Respiratory: Denies: cough, short of breath. Gastrointestinal: Denies: nausea, vomiting. Skin: Reports: no symptoms. Objective Last 24 Hrs of Vital Signs/I&O Vital Signs Date Time Temp Pulse Resp B/P B/P Pulse O2 O2 Flow FiO2 Mean Ox Delivery Rate 04/14 0634 98.4 80 20 144/60 96 Room Air 04/13 2232 98.6 84 20 140/60 94 Room Air 04/13 2142 84 140/60 04/13 1528 98.0 71 22 118/60 93 04/13 1015 78 122/60 Intake & Output 04/14 1600 04/14 0800 04/14 0000 Intake Total 250 Output Total 350 Balance -100 Intake, IV 10 Intake, Oral 240 Number 0 Bowel Movements Output, Urine 350 Vital Signs Date Time Temp Pulse Resp B/P B/P Pulse O2 O2 Flow FiO2 Mean Ox Delivery Rate 04/14 0634 98.4 80 20 144/60 96 Room Air 04/13 2232 98.6 84 20 140/60 94 Room Air 04/13 2142 84 140/60 04/13 1528 98.0 71 22 118/60 93 04/13 1015 78 122/60 Intake & Output 04/14 1600 04/14 0800 04/14 0000 Intake Total 250 Output Total 350 Balance -100 Intake, IV 10 Intake, Oral 240 Number 0 Bowel Movements Output, Urine 350 Physical Exam General Appearance: alert, awake, anxious Head: normal appearance Respiratory: normal breath sounds Cardiovascular: regular rate/rhythm Abdomen: normal bowel sounds Current Medications: Current Medications Sig/Tony Start time Last Medication Dose Route Stop Time Status Admin Acetaminophen 650 MG Q6P PRN 04/09 2245 AC 04/12 PO 1635 Acetaminophen/ 1 TAB Q6P PRN 04/09 2245 AC 04/14 Hydrocodone Bitart PO 0241 Amitriptyline HCl 50 MG AT BEDTIME 04/10 2200 AC 04/13 PO 2142 Amoxicillin/ 500 MG Q12 04/13 2200 AC 04/13 Clavulanate Potassium PO 2142 Atorvastatin Calcium 40 MG 1700 04/10 1700 AC 04/13 PO 1554 Ceftriaxone Sodium 1,000 MG DAILY 04/10 1000 DC 04/13 IV 1012 Cholecalciferol 1,000 IU DAILY 04/10 1000 AC 04/13 PO 1012 Duloxetine HCl 60 MG 1600 04/10 1600 AC 04/13 PO 1554 Fluticasone 2 SPRAY DAILY 04/11 1900 AC 04/13 Propionate TAMMY 1012 Folic Acid 1 MG DAILY 04/10 1000 AC 04/13 PO 1015 Heparin Sodium 5,000 UNIT Q8 04/10 0600 AC 04/14 (Porcine) SC 0610 Insulin Aspart 0 TIDAC 04/11 1200 AC 04/13 SC 1810 Insulin Detemir 6 UNITS BID 04/13 2200 AC 04/13 SC 2148 Insulin Detemir 8 UNITS BID 04/12 2200 DC 04/13 SC 1014 Loratadine 10 MG DAILY 04/10 1000 AC 04/13 PO 1012 Lorazepam 0.5 MG Q3P PRN 04/10 0215 AC PO 04/17 0214 Metoprolol Tartrate 25 MG BID 04/10 1000 AC 04/13 PO 2142 Morphine Sulfate 2 MG Q4 PRN 04/09 2245 AC 04/11 IV 0943 Nystatin 1 ATTILA BID 04/10 0207 AC 04/13 TOP 2149 Ondansetron HCl 4 MG Q6P PRN 04/10 1300 AC 04/11 IV 0854 Oxybutynin Chloride 10 MG DAILY 04/10 1000 AC 04/13 PO 1012 Patient Medication 1 ED .STK-MED ONE 04/13 1354 DC Teaching ED 04/13 1355 Polyethylene Glycol 17 GM DAILY 04/12 1000 AC 04/13 PO 1015 Ropinirole HCl 2 MG AT BEDTIME 04/10 2330 AC 04/13 PO 2141 Senna/Docusate Sodium 1 TAB BID 04/12 1000 AC 04/13 PO 2142 Simethicone 80 MG Q6P PRN 04/11 2100 AC 04/13 PO 1012 Tramadol HCl 50 MG Q4H PRN 04/10 0230 AC PO Trazodone HCl 100 MG AT BEDTIME 04/10 2200 AC 04/13 PO 2142
[2017-04-14 09:08] VITALS: BP 140/70
[2017-04-14] MEDS ORDERED: LEVEMIR100 UNIT/1 SC (09:46)
[2017-04-14] MEDS ORDERED: NOVOLOG100 UNIT/2 SC (09:46)
[2017-04-14] MEDS ORDERED: TRESIBA FL100 UNIT/1 SC ×2 (13:31)
[2017-04-14] MEDS ORDERED: NOVOLOG FL100 UNIT/1 SC (13:43)
== END 2017-04-14 15:30 | disposition left against medical advice (07) | DRG 683 ==
LOC: ERH 16:36 → 2NA 19:13 → ERHI 19:13 → ENRESERV 22:06 → 2NA 22:36 → ENPENDDIS 04-14 13:56 → 2NA 04-14 15:30
PROVIDERS: Internal Medicine; Physician Assistant Medical; Student in an Organized Health Care Education/Training Program; ADMIT Student in an Organized Health Care Education/Training Program
DX: N17.9 Acute kidney failure, unspecified (principal); I69.351 Hemiplegia and hemiparesis following cerebral infarction affecting right dominant side; E11.649 Type 2 diabetes mellitus with hypoglycemia without coma; Z68.43 Body mass index [BMI] 50.0-59.9, adult; E66.01 Morbid (severe) obesity due to excess calories; G30.9 Alzheimer's disease, unspecified; F02.80 Dementia in other diseases classified elsewhere, unspecified severity, without behavioral disturbance, psychotic disturbance, mood disturbance, and anxiety; B96.1 Klebsiella pneumoniae [K. pneumoniae] as the cause of diseases classified elsewhere; N39.0 Urinary tract infection, site not specified; B35.6 Tinea cruris; I10 Essential (primary) hypertension; Z79.4 Long term (current) use of insulin; E78.5 Hyperlipidemia, unspecified; K21.9 Gastro-esophageal reflux disease without esophagitis; M19.90 Unspecified osteoarthritis, unspecified site; F32.9 Major depressive disorder, single episode, unspecified; G47.33 Obstructive sleep apnea (adult) (pediatric); Z66 Do not resuscitate
CPT/HCPCS: 2NASP; 84133; 84300; 36415; 76775; 78582; 81001; 82436; 82570; 87086; 93005; 93010; 93970; 97161-GP; A9540; A9558; J0696; J1644; J2405; J3490; J7042